=== PATIENT | male | born 1940 | race Caucasian/White ===

== ENCOUNTER → 2017-10-25 | Day surgery (SDC) | payer MEDICARE, BC ==
[~2017-10-25] MED LIST: Lactated Ringers 1,000 ML IV SCH; Propofol 200 MG/20 ML SDV IV ONE
[2017-10-25 08:41] VITALS: BP 125/65
--- NOTE | 2017-10-25 14:33 | OR ---
DATE OF OPERATION: 10/25/2017 PREOPERATIVE DIAGNOSIS: DYSPHAGIA. POSTOPERATIVE DIAGNOSIS: DYSPHAGIA. SURGEON: Michele Camp MD PROCEDURE: FULL-LENGTH EGD WITH SNARE POLYPECTOMY X1. ANESTHESIA: LEARNING DISABLED TEACHER. COMPLICATIONS: None. SPECIMEN: Fundal polyp. FINDINGS: 1. Full-length EGD. 2. 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 3. Fundal polyps x3. 4. No sign of peptic ulcer disease, distal esophagitis, stricturing, ulceration, or Eduardo's. RECOMMENDATIONS: Medical followup pending path reports. INDICATIONS: Mr. 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 The patient elected to proceed with EGD. DESCRIPTION OF PROCEDURE: The patient was prepped and draped, placed in a left lateral decubitus position. A lubricated Olympus gastroscope was inserted over a bit, advanced to the cricopharyngeus area and intubated in the esophagus. The esophageal lining appeared benign in its entire course. The Z-line was crisp and sharp around 40 cm. No hernia present. No distal esophagitis, stricturing, ulceration, or Eduardo's changes. The scope was advanced into the stomach through the pylorus and into the second portion of the duodenum. This and the duodenal bulb were completely benign. The scope was brought back in the stomach and retroflexed. The upper fundus and cardia showed no gross abnormalities. The patient had 3 reasonably small adenomatous polyps in the fundus, the larger of the 3 was removed with a snare and suctioned into polyp trap #1. The rest of the fundus and antrum showed no other gross signs of any peptic ulcer disease, other lesions, etc. Air was then suctioned from the stomach and scope removed without complication. CHARBEL/RODRIGO /[id number]
== END ==
LOC: CC.SDS 06:23
PROVIDERS: ATTEND Family Medicine
DX: K31.7 Polyp of stomach and duodenum (principal); I25.10 Atherosclerotic heart disease of native coronary artery without angina pectoris; F32.9 Major depressive disorder, single episode, unspecified; E53.8 Deficiency of other specified B group vitamins; E78.5 Hyperlipidemia, unspecified; I10 Essential (primary) hypertension; E11.9 Type 2 diabetes mellitus without complications; Z95.1 Presence of aortocoronary bypass graft; Z79.82 Long term (current) use of aspirin; Z88.8 Allergy status to other drugs, medicaments and biological substances; Z79.899 Other long term (current) drug therapy; Z79.84 Long term (current) use of oral hypoglycemic drugs; Z72.0 Tobacco use
CPT/HCPCS: 00731; 43251; 82962; 88305; 88342; J2704; J7120

== ENCOUNTER 2019-12-26 03:19 | Emergency (ER) | payer MEDICARE, BC ==
[2019-12-26 03:23] VITALS: BP 137/71; PULSE 94
--- NOTE | 2019-12-26 03:59 | EDM.PDOC ---
ED HPI GENERAL MEDICAL PROBLEM - General Chief Complaint: General Stated Complaint: groin pain Time Seen by Provider: 12/26/19 03:42 Source of Information: Reports: Patient History Limitations: Reports: No Limitations - History of Present Illness INITIAL COMMENTS - FREE TEXT/NARRATIVE: This patient is a 79 year old male that presents to the ER. Patient reports for weeks having issues with urinary frequency, but not emptying bladder completely with urge. Patient reports it was worse this morning. Onset: Today Duration: Hour(s): (3) Severity: Mild Improves with: Reports: None Worsens with: Reports: None Associated Symptoms: Reports: No Other Symptoms. Denies: Nausea/Vomiting Groin Pain Score (Numeric/FACES): 8 - Related Data Allergies Allergy/AdvReac Type Severity Reaction Status Date / Time diltiazem HCl Allergy Rash Verified 12/26/19 03:23 [From Dilacor XR] Home Meds: Home Meds Gabapentin 300 mg PO DAILY 11/22/13 [History] amLODIPine Besylate [Amlodipine Besylate] 10 mg PO DAILY 11/22/13 [History] Losartan Potassium [Cozaar] 100 mg PO DAILY 11/24/15 [History] Aspirin 325 mg PO DAILY 01/24/16 [History] Docusate Sodium 250 mg PO DAILY 01/24/16 [History] Folic Acid 1 mg PO DAILY 01/24/16 [History] Gabapentin [Neurontin] 600 mg PO BEDTIME 01/24/16 [History] Metoprolol Tartrate [Lopressor] 50 mg PO BID 01/24/16 [History] Mirtazapine 15 mg PO BEDTIME 01/24/16 [History] Multivitamin [Daily Multiple Vitamin] 1 tab PO DAILY 01/24/16 [History] Omeprazole 20 mg PO DAILY 01/24/16 [History] Thiamine [Vitamin B-1] 100 mg PO DAILY 01/24/16 [History] atorvaSTATin [Lipitor] 40 mg PO BEDTIME 01/24/16 [History] Acetaminophen/HYDROcodone [[place]ma 325-5 MG] 1 tab PO Q4H PRN #60 tablet 01/27/16 [Rx] Amiodarone [Cordarone] 200 mg PO DAILY #30 tablet 01/27/16 [Rx] metFORMIN HCl [Metformin HCl] 1,000 mg PO DAILY #30 01/27/16 [Rx] Clotrimazole/Betamethasone Dip [Lotrisone Cream] 1 applic TOP ASDIRECTED [History] hydroCHLOROthiazide [Hydrochlorothiazide] 12.5 mg PO DAILY 10/24/17 [History] Past Medical History Cardiovascular History: Reports: Bypass, CAD, High Cholesterol, Hypertension Musculoskeletal History: Reports: Arthritis Psychiatric History: Reports: Depression Endocrine/Metabolic History: Reports: Diabetes, Type II Hematologic History: Reports: B12 Deficiency - Infectious Disease History Infectious Disease History: Reports: None - Past Surgical History Cardiovascular Surgical History: Reports: Coronary Artery Bypass GI Surgical History: Reports: Appendectomy, Colonoscopy Musculoskeletal Surgical History: Reports: Hip Replacement, Other (See Below) Social & Family History - Tobacco Use Smoking Status *Q: Never Smoker - Caffeine Use Caffeine Use: Reports: Coffee - Recreational Drug Use Recreational Drug Use: No ED ROS GENERAL - Review of Systems Review Of Systems: See Below Constitutional: Reports: No Symptoms HEENT: Reports: No Symptoms Respiratory: Reports: No Symptoms Cardiovascular: Reports: No Symptoms Endocrine: Reports: No Symptoms GI/Abdominal: Reports: No Symptoms : Reports: Frequency, Pain, Urgency, Urinary Retention Musculoskeletal: Reports: No Symptoms Skin: Reports: No Symptoms Neurological: Reports: No Symptoms Psychiatric: Reports: No Symptoms Hematologic/Lymphatic: Reports: No Symptoms Immunologic: Reports: No Symptoms ED EXAM, GENERAL - Physical Exam Exam: See Below Exam Limited By: No Limitations General Appearance: Alert, WD/WN, No Apparent Distress Respiratory/Chest: No Respiratory Distress, Lungs Clear, Normal Breath Sounds, No Accessory Muscle Use Cardiovascular: Normal Peripheral Pulses, Regular Rate, Rhythm, No Edema, No Gallop, No JVD, No Murmur, No Rub Peripheral Pulses: 2+: Posterior Tibial (L), Posterior Tibial (R) GI/Abdominal: Normal Bowel Sounds, Soft, Non-Tender, No Organomegaly (Male) Exam: Normal Inspection Back Exam: Normal Inspection, Full Range of Motion. No: CVA Tenderness (L), CVA Tenderness (R) Extremities: Normal Inspection, Pedal Edema Neurological: Alert, Oriented Psychiatric: Normal Affect, Normal Mood Skin Exam: Warm, Dry, Intact, Normal Color, No Rash Course - Vital Signs Last Recorded V/S: Last Vital Signs Temp 97.9 F 12/26/19 03:20 Pulse 94 12/26/19 03:20 Resp 18 12/26/19 03:20 BP 137/71 12/26/19 03:20 Pulse Ox 98 12/26/19 03:20 - Orders/Labs/Meds Orders: Active Orders 24 hr Category Date Time Status Insert Meek Catheter [Insert Urinary Catheter] [OM.PC] Care 12/26/19 03:29 Ordered Q24H Urinary Catheter Assessment [RC] ASDIRECTED Care 12/26/19 03:29 Active Labs: Laboratory Tests 12/26/19 Range/Units 03:48 Urine Color Yellow (YELLOW) Urine Appearance Clear (CLEAR) Urine pH 5.5 (4.5-8.0) Ur Specific [place] 1.025 H (1.003-1.020) Urine Protein Negative (NEGATIVE) mg/dL Urine Glucose (UA) Negative (NEGATIVE) mg/dL Urine Ketones Negative (NEGATIVE) mg/dL Urine Occult Blood Negative (NEGATIVE) Urine Nitrite Negative (NEGATIVE) Urine Bilirubin Negative (NEGATIVE) Urine Urobilinogen 0.2 (0.2-1.0) EU/dL Ur Leukocyte Esterase Negative (NEGATIVE) - Re-Assessments/Exams Free Text/Narrative Re-Assessment/Exam: 12/26/19 03:57 Apprx 700 urine out after meek placement. Will leave meek indwelling in place. Patient reports he feels completely better after meek. Departure - Departure Time of Disposition: 03:57 Disposition: Home, Self-Care 01 Condition: Good Clinical Impression: Urinary retention - Discharge Information *PRESCRIPTION DRUG MONITORING PROGRAM REVIEWED*: Not Applicable *COPY OF PRESCRIPTION DRUG MONITORING REPORT IN PATIENT MARY: Not Applicable Instructions: Acute Urinary Retention, Male, [id number] Forms: ED Department Discharge Additional Instructions: Followup with Dr. Rodriguez Call Dr Camp office, inform them you now have a meek catheter and you need to be seen by Dr. Rodriguez Drain the bag regularly as shown in the ER Keep catheter clean Return to the ER for fever, vomiting, pain, or other complaints Sepsis Event Note - Evaluation Sepsis Screening Result: No Definite Risk - Focused Exam Vital Signs: Vital Signs Temp Pulse Resp BP Pulse Ox 12/26/19 03:20 97.9 F 94 18 137/71 98 Date Exam was Performed: 12/26/19 Time Exam was Performed: 04:17 - My Orders Last 24 Hours: My Active Orders 12/26/19 03:29 Insert Meek Catheter [Insert Urinary Catheter] [OM.PC] Q24H Urinary Catheter Assessment [RC] ASDIRECTED - Assessment/Plan Last 24 Hours: My Active Orders 12/26/19 03:29 Insert Meek Catheter [Insert Urinary Catheter] [OM.PC] Q24H Urinary Catheter Assessment [RC] ASDIRECTED Plan: PLEASE SEE RN NOTE FOR PFSH
== END 2019-12-26 04:19 | disposition home or self-care (01) ==
LOC: CC.ED 03:19
DX: R33.9 Retention of urine, unspecified (principal); E11.9 Type 2 diabetes mellitus without complications; F32.9 Major depressive disorder, single episode, unspecified; I10 Essential (primary) hypertension; E78.00 Pure hypercholesterolemia, unspecified; I25.10 Atherosclerotic heart disease of native coronary artery without angina pectoris; Z95.1 Presence of aortocoronary bypass graft; Z79.82 Long term (current) use of aspirin; Z88.8 Allergy status to other drugs, medicaments and biological substances; Z79.899 Other long term (current) drug therapy; Z79.84 Long term (current) use of oral hypoglycemic drugs
CPT/HCPCS: 51702; 81003; 99283-25; 99284

== ENCOUNTER 2020-06-30 14:25 | Inpatient (IN) | payer MEDICARE, BC ==
[2020-06-30 15:35] LABS: CHLORIDE,CL 102 mEq/L (98-106); SODIUM,NA 142 mEq/L (136-145)
[2020-06-30] MEDS ORDERED: Clopidogrel 75 MG Tab PO ONE (16:55)
[2020-06-30] MEDS ORDERED: Furosemide 40 MG/4 ML VIAL IVPUSH ONE (16:55)
[2020-06-30] MEDS ORDERED: Aspirin 325 MG Tab PO ONE (16:55)
[2020-06-30] MEDS ORDERED: Nitroglycerin 2% Oint 1 GM UD Packet TOP ONE (16:59)
[2020-06-30] MEDS ORDERED: Sodium Chloride 0.9% 10 ML Syringe FLUSH PRN (17:04)
[2020-06-30] MEDS ORDERED: Heparin Sodium 5,000 Units/ML Vial IVPUSH ONE (17:20)
[2020-06-30] MEDS ORDERED: Heparin Sodium/D5W 25,000 UNITS/500 ML BAG IV STA (17:20)
[2020-06-30 17:46] LABS: PTT,PARTIAL THROMBOPLSTIN TIME 23.2 SEC (23.2-32.3)
[2020-06-30 18:56] VITALS: BP 159/81; PULSE 91
--- NOTE | 2020-06-30 20:41 | DISCH ---
ADMISSION DIAGNOSIS: Acute congestive heart failure. DISCHARGE DIAGNOSIS: 1. ACUTE CORONARY SYNDROME. 2. CONGESTIVE HEART FAILURE. 3. TYPE 2 DIABETES. 4. HISTORY OF CORONARY ARTERY DISEASE, STATUS POST CORONARY ARTERY BYPASS GRAFT. HISTORY: Fortino presented to my office with exertional dyspnea, shortness of breath, and increasing peripheral edema. He had an elevated BNP and showed signs of heart failure on his chest x-ray. Troponin came back elevated at 1.5. On further discussion, the patient admits to having about a 7- to 10-day history of some anterior chest pressure at times, especially in the morning. HOSPITAL COURSE: The patient was initially admitted to the hospital for appropriate cares, including anticoagulation, IV Lasix, topical nitroglycerin, aspirin and Plavix. I was able to get a hold of Dr. Nj at [facility] on-call Cardiology, who desires transfer more urgently. The previous plan had been to transfer him by the morning, but he would like him down there tonight. He asked for a heparin drip instead of Lovenox, which we did. The patient was given 40 of Lasix IV for his CHF. We started him on topical nitroglycerin as his pressures were high, put him on oxygen, and gave him 600 of Plavix and a full aspirin. He will go ALS ground transfer, care of Dr. Nj, accepting physician at [facility]. COMPLICATIONS: None. CONSULTATIONS: Cardiology. DISPOSITION: ALS ground transfer, [facility]. CHARBEL/RODRIGO /[id number]
== END 2020-06-30 18:45 | DRG 281 ==
LOC: CC.FCMC 14:25 → CC.MS 15:48 → UNDOADMIN 15:48 → CC.MS 17:02 → UNDODISIN 18:45
PROVIDERS: ADMIT Family Medicine; ATTEND Family Medicine
DX: I11.0 Hypertensive heart disease with heart failure (principal); I21.4 Non-ST elevation (NSTEMI) myocardial infarction; I24.9 Acute ischemic heart disease, unspecified; I50.9 Heart failure, unspecified; C61 Malignant neoplasm of prostate; N40.0 Benign prostatic hyperplasia without lower urinary tract symptoms; Z20.828 Contact with and (suspected) exposure to other viral communicable diseases; F32.9 Major depressive disorder, single episode, unspecified; E78.5 Hyperlipidemia, unspecified; E53.8 Deficiency of other specified B group vitamins; I25.10 Atherosclerotic heart disease of native coronary artery without angina pectoris; E83.119 Hemochromatosis, unspecified; N32.81 Overactive bladder; Z88.8 Allergy status to other drugs, medicaments and biological substances; Z79.82 Long term (current) use of aspirin; Z95.1 Presence of aortocoronary bypass graft; Z79.899 Other long term (current) drug therapy; Z79.84 Long term (current) use of oral hypoglycemic drugs
CPT/HCPCS: 36415; 71046; 80053; 81001; 83880; 84484; 85025; 85379; 85610; 85730; 86140; 93005; 93010; A9270-GY; J1644; J1940; U0002

== ENCOUNTER 2020-08-07 17:05 | Inpatient (IN) | payer MEDICARE, BC ==
--- NOTE | 2020-08-07 17:53 | EDM.PDOC ---
ED HPI GENERAL MEDICAL PROBLEM - General Chief Complaint: General Stated Complaint: agitation, confusion Time Seen by Provider: 08/07/20 17:10 Source of Information: Reports: Patient, Family, RN History Limitations: Reports: Altered Mental Status - History of Present Illness INITIAL COMMENTS - FREE TEXT/NARRATIVE: This patient is a 80 year old male that presented to the ER via private vehicle. 911 was called by family, EMS responded, but patient was already in the private vehicle driving in route to the hospital. When patient arrived in the ambulance bay, he refused to get out of the daughter van. He became combative with the daughter. After spending about 25 minutes with patient trying to talk him out of the van, he refused. He made a fist at staff. Patient is alert, but he is not oriented. He does not know the year or location. Patient then as lifted about of the van with a gait belt and multiple person assist onto an ER stretcher. Once on the stretcher and in the ER, patient became more cooperative. The daughter reports that the patient was in [place] staying with her, then on July 14 diagnosed with COVID and admitted to the hospital and discharged the 21 of July. Daughter reports while the patient was admitted in the hospital he became confused and "dementia". She reports the hospital told her it was dementia. The daughter reports her father was staying with her in [place]. She reports the past couple of days the patient has become more forgetful, agitated, and has been swinging at her to punch her. She reports that she was able to get an office visit with Dr. Camp here tomorrow in [place]. She reports her father is from here in [place]. She reports the visit was to see Dr Camp and be admitted on Saturday to [facility]. Daughter reports that she managed to get her father in the van in [place], drive here to [place] then when she tried to get the patient out of the van he started swinging at her with a fist to hit her. The patient in the exam room reports that he is very mad at his daughter because she is taking his house away from him. Once daughter is not in the exam room, the patient remains calm and cooperative. He is alert to self and location in exam room. The patient denies any complaints. The daughter denies patient having vomiting, diarrhea, fever, cough, unilateral weaknesses. Onset Date: 08/05/20 Duration: Day(s): (2) Improves with: Reports: None Worsens with: Reports: None Associated Symptoms: Reports: Confusion. Denies: Chest Pain, Cough, cough w sputum, Diaphoresis, Fever/Chills, Headaches, Loss of Appetite, Malaise, Nausea/Vomiting, Rash, Seizure, Shortness of Breath, Syncope, Weakness - Related Data Allergies Allergy/AdvReac Type Severity Reaction Status Date / Time diltiazem HCl Allergy Rash Verified 08/07/20 17:39 [From Dilacor XR] Home Meds: Home Meds Gabapentin 300 mg PO ASDIRECTED 11/22/13 [History] amLODIPine Besylate [Amlodipine Besylate] 10 mg PO DAILY 11/22/13 [History] Losartan Potassium [Cozaar] 100 mg PO DAILY 11/24/15 [History] Aspirin 325 mg PO DAILY 01/24/16 [History] Folic Acid 1 mg PO DAILY 01/24/16 [History] Metoprolol Tartrate [Lopressor] 50 mg PO BID 01/24/16 [History] Mirtazapine 1.5 tab PO BEDTIME 01/24/16 [History] Multivitamin [Daily Multiple Vitamin] 1 tab PO DAILY 01/24/16 [History] Omeprazole 20 mg PO DAILY 01/24/16 [History] atorvaSTATin [Lipitor] 40 mg PO BEDTIME 01/24/16 [History] Amiodarone [Cordarone] 200 mg PO DAILY #30 tablet 01/27/16 [Rx] metFORMIN HCl [Metformin HCl] 1,000 mg PO BID 12/26/19 [History] Past Medical History Cardiovascular History: Reports: Bypass, CAD, High Cholesterol, Hypertension Musculoskeletal History: Reports: Arthritis Psychiatric History: Reports: Depression Endocrine/Metabolic History: Reports: Diabetes, Type II Hematologic History: Reports: B12 Deficiency Oncologic (Cancer) History: Reports: Prostate - Infectious Disease History Infectious Disease History: Reports: Novel Coronavirus, Shingles - Past Surgical History Cardiovascular Surgical History: Reports: Coronary Artery Bypass GI Surgical History: Reports: Appendectomy, Colonoscopy Musculoskeletal Surgical History: Reports: Hip Replacement, Other (See Below) Other Musculoskeletal Surgeries/Procedures:: left ankle surgery. Social & Family History - Caffeine Use Caffeine Use: Reports: Coffee ED ROS GENERAL - Review of Systems Review Of Systems: See Below Constitutional: Reports: No Symptoms HEENT: Reports: No Symptoms Respiratory: Reports: No Symptoms Cardiovascular: Reports: No Symptoms Endocrine: Reports: No Symptoms GI/Abdominal: Reports: No Symptoms : Reports: No Symptoms, Other (cath leg bag) Musculoskeletal: Reports: No Symptoms Skin: Reports: No Symptoms Neurological: Reports: Confusion. Denies: Dizziness, Headache, Numbness, Syncope, Tingling, Weakness, Change in Speech Psychiatric: Reports: Agitation, Anxiety, Confusion Hematologic/Lymphatic: Reports: No Symptoms Immunologic: Reports: No Symptoms ED EXAM, GENERAL - Physical Exam Exam: See Below Exam Limited By: Altered Mental Status General Appearance: Alert, WD/WN, No Apparent Distress, Anxious, Obese Eye Exam: Bilateral Eye: Normal Inspection, PERRL Ears: Normal External Exam, Normal Canal, Hearing Grossly Normal, Normal TMs Ear Exam: Bilateral Ear: Auricle Normal, Canal Normal, TM normal Nose: Normal Inspection, Normal Mucosa, No Blood Throat/Mouth: Normal Inspection, Normal Lips, Normal Teeth, Normal Gums, Normal Oropharynx, Normal Voice, No Airway Compromise Head: Atraumatic, Normocephalic Neck: Normal Inspection, Supple, Non-Tender, Full Range of Motion Respiratory/Chest: No Respiratory Distress, Lungs Clear, Normal Breath Sounds, No Accessory Muscle Use, Chest Non-Tender Cardiovascular: Normal Peripheral Pulses, Regular Rate, Rhythm, No Rub Peripheral Pulses: 2+: Radial (L), Radial (R), Posterior Tibial (L), Posterior Tibial (R), Dorsalis Pedis (L), Dorsalis Pedis (R) GI/Abdominal: Soft, Tender (mild diffuse) Back Exam: Normal Inspection, Full Range of Motion, Paraspinal Tenderness (mild throughout). No: CVA Tenderness (L), CVA Tenderness (R), Decreased Range of Motion, Muscle Spasm, Vertebral Tenderness Extremities: Normal Inspection, Normal Range of Motion, Non-Tender, No Pedal Edema, Normal Capillary Refill Neurological: Alert, CN II-XII Intact (No unilateral weaknesses), Normal Cognition, No Motor/Sensory Deficits, Other (Oriented to self and place. Not time. ) Psychiatric: Normal Affect, Normal Mood Skin Exam: Warm, Dry, Intact, Normal Color, No Rash, Ecchymosis (diffuse abdomen consistent with Lovenox injections from recent admission. Left hip, BUE foreamrs and upper arms.) Lymphatic: No Adenopathy Course - Vital Signs Last Recorded V/S: Last Vital Signs Temp 98 F 08/07/20 17:32 Pulse 84 08/07/20 17:32 Resp 20 08/07/20 17:32 BP 118/58 L 08/07/20 17:32 Pulse Ox 93 L 08/07/20 17:32 - Orders/Labs/Meds Orders: Active Orders 24 hr Category Date Time Status Chest 1V Frontal [CR] Stat Exams 08/07/20 17:41 Taken Head wo Cont [CT] Stat Exams 08/07/20 17:42 Taken CULTURE BLOOD [BC] Stat Lab 08/07/20 18:00 Received CULTURE BLOOD [BC] Stat Lab 08/07/20 18:00 Received CULTURE URINE [RM] Stat Lab 08/07/20 19:15 Received Blood Culture x2 Reflex Set [OM.PC] Stat Oth 08/07/20 17:40 Ordered Labs: Laboratory Tests 08/07/20 08/07/20 08/07/20 Range/Units 17:40 18:00 18:00 WBC 8.5 (5.0-10.0) 10^3/uL RBC 4.40 L (4.50-6.00) 10^6/uL Hgb 12.5 L (14.0-18.0) g/dL Hct 38.8 L (40.0-54.0) % MCV 88.2 (82.0-94.0) fL MCH 28.4 (27.0-32.0) pg MCHC 32.2 L (33.0-38.0) g/dL RDW Coeff of Lars 13.5 (11.0-15.0) % Plt Count 170 (150-400) 10^3/uL Neut % (Auto) 62.8 (35-85) % Lymph % (Auto) 22.3 (10-55) % [place] % (Auto) 9.5 (0-16) % Eos % (Auto) 4.9 (0-5) % Baso % (Auto) 0.5 (0-3) % Neut # (Auto) 5.33 (1.80-7.00) 10^3/uL Lymph # (Auto) 1.89 (1.00-4.80) 10^3/uL [place] # (Auto) 0.81 H (0.00-0.80) 10^3/uL Eos # (Auto) 0.42 (0.00-0.45) 10^3/uL Baso # (Auto) 0.04 10^3/uL Sodium 142 (136-145) mEq/L Potassium 4.7 (3.5-5.0) mEq/L Chloride 101 (98-106) mEq/L Carbon Dioxide 31 (21-32) mmol/L BUN 27 H (7-18) mg/dL Creatinine 2.5 H D (0.7-1.3) mg/dL Est Cr Clr Drug Dosing 21.18 mL/min Estimated GFR (MDRD) 25 L (>=60) mL/min Glucose 150 H (75-99) mg/dL Lactic Acid (0.4-2.0) mmol/L Calcium 8.6 (8.4-10.1) mg/dL Total Bilirubin 0.5 (0.0-1.0) mg/dL AST 37 (15-37) U/L ALT 24 (12-78) U/L Alkaline Phosphatase 135 H (46-116) U/L Creatine Kinase 1054 H (35-232) U/L Total Protein 7.2 (6.4-8.2) g/dL Albumin 3.0 L (3.4-5.0) g/dL Urine Color Red (YELLOW) Urine Appearance Cloudy (CLEAR) Urine pH 5.0 (4.5-8.0) Ur Specific [place] >= 1.030 H (1.003-1.020) Urine Protein >=300 H (NEGATIVE) mg/dL Urine Glucose (UA) Negative (NEGATIVE) mg/dL Urine Ketones 15 H (NEGATIVE) mg/dL Urine Occult Blood Large H (NEGATIVE) Urine Nitrite Positive H (NEGATIVE) Urine Bilirubin Negative (NEGATIVE) Urine Urobilinogen 1.0 (0.2-1.0) EU/dL Ur Leukocyte Esterase Large H (NEGATIVE) Urine RBC Packed H (0-5) /HPF Urine WBC 75-100 H (0-5) /HPF Urine Bacteria Many H (NOT SEEN) /HPF Urinalysis Comment 08/07/20 Range/Units 18:00 WBC (5.0-10.0) 10^3/uL RBC (4.50-6.00) 10^6/uL Hgb (14.0-18.0) g/dL Hct (40.0-54.0) % MCV (82.0-94.0) fL MCH (27.0-32.0) pg MCHC (33.0-38.0) g/dL RDW Coeff of Lars (11.0-15.0) % Plt Count (150-400) 10^3/uL Neut % (Auto) (35-85) % Lymph % (Auto) (10-55) % [place] % (Auto) (0-16) % Eos % (Auto) (0-5) % Baso % (Auto) (0-3) % Neut # (Auto) (1.80-7.00) 10^3/uL Lymph # (Auto) (1.00-4.80) 10^3/uL [place] # (Auto) (0.00-0.80) 10^3/uL Eos # (Auto) (0.00-0.45) 10^3/uL Baso # (Auto) 10^3/uL Sodium (136-145) mEq/L Potassium (3.5-5.0) mEq/L Chloride (98-106) mEq/L Carbon Dioxide (21-32) mmol/L BUN (7-18) mg/dL Creatinine (0.7-1.3) mg/dL Est Cr Clr Drug Dosing mL/min Estimated GFR (MDRD) (>=60) mL/min Glucose (75-99) mg/dL Lactic Acid 3.5 H (0.4-2.0) mmol/L Calcium (8.4-10.1) mg/dL Total Bilirubin (0.0-1.0) mg/dL AST (15-37) U/L ALT (12-78) U/L Alkaline Phosphatase (46-116) U/L Creatine Kinase (35-232) U/L Total Protein (6.4-8.2) g/dL Albumin (3.4-5.0) g/dL Urine Color (YELLOW) Urine Appearance (CLEAR) Urine pH (4.5-8.0) Ur Specific [place] (1.003-1.020) Urine Protein (NEGATIVE) mg/dL Urine Glucose (UA) (NEGATIVE) mg/dL Urine Ketones (NEGATIVE) mg/dL Urine Occult Blood (NEGATIVE) Urine Nitrite (NEGATIVE) Urine Bilirubin (NEGATIVE) Urine Urobilinogen (0.2-1.0) EU/dL Ur Leukocyte Esterase (NEGATIVE) Urine RBC (0-5) /HPF Urine WBC (0-5) /HPF Urine Bacteria (NOT SEEN) /HPF Urinalysis Comment - Radiology Interpretation Free Text/Narrative:: CXR: no acute findings Head CT: age indeterminant small left basal ganglia lacunar infarcts. No priors for comparison. Small chronic appearingare of encephalomalacia involving the right cerebellar hemisphere. Mild to moderate age related cerebral parenchymal volume loss and findings most consistent with chronic small vessel ischemic change. Cerumen impaction involving the bilateral external auditory canals. CT Results Date: 08/07/20 CT Results Time: : - Re-Assessments/Exams Free Text/Narrative Re-Assessment/Exam: 08/07/20 19:11 Patient is being cooperative. He is sitting up in bed in room 112, eating dinner. He now is alert and oriented x3. He knows his name, location, and year. Departure - Departure Time of Disposition: 19:20 Disposition: Admitted As Inpatient 68 Condition: Fair Clinical Impression: Renal insufficiency, Agitation, UTI, Urinary tract infectious disease Altered mental status Qualifiers: Altered mental status type: delirium Qualified Code(s): R41.0 - Disorientation, unspecified - Discharge Information *PRESCRIPTION DRUG MONITORING PROGRAM REVIEWED*: Not Applicable *COPY OF PRESCRIPTION DRUG MONITORING REPORT IN PATIENT MARY: Not Applicable Sepsis Event Note (ED) - Evaluation Sepsis Screening Result: No Definite Risk - Focused Exam Vital Signs: Vital Signs Temp Pulse Resp BP Pulse Ox 08/07/20 17:32 98 F 84 20 118/58 L 93 L - My Orders Last 24 Hours: My Active Orders 08/07/20 17:40 Blood Culture x2 Reflex Set [OM.PC] Stat 08/07/20 17:41 Chest 1V Frontal [CR] Stat 08/07/20 17:42 Head wo Cont [CT] Stat 08/07/20 18:00 CULTURE BLOOD [BC] Stat CULTURE BLOOD [BC] Stat 08/07/20 19:15 CULTURE URINE [RM] Stat - Assessment/Plan Last 24 Hours: My Active Orders 08/07/20 17:40 Blood Culture x2 Reflex Set [OM.PC] Stat 08/07/20 17:41 Chest 1V Frontal [CR] Stat 01/17/21 17:42 Head wo Cont [CT] Stat 08/07/20 18:00 CULTURE BLOOD [BC] Stat CULTURE BLOOD [BC] Stat 08/07/20 19:15 CULTURE URINE [RM] Stat Plan: PLEASE SEE RN NOTE FOR PFSH PLEASE USE ER H&P ADMIT H&P
[2020-08-07] MEDS ORDERED: Acetaminophen 325 MG Tab PO PRN (19:29)
[2020-08-07] MEDS ORDERED: Morphine 2 MG/ML SYRINGE IVPUSH PRN (19:29)
[2020-08-07] MEDS ORDERED: Acetaminophen/HYDROcodone 325-5 MG Tab PO PRN (19:29)
[2020-08-07] MEDS ORDERED: Temazepam 15 MG Cap PO PRN (19:29)
[2020-08-07] MEDS ORDERED: Ondansetron 4 MG/2 ML SDV IV PRN (19:29)
[2020-08-07] MEDS ORDERED: Enoxaparin 30 MG/0.3 ML Syringe SUBCUT SCH (19:30)
[2020-08-07] MEDS ORDERED: cefTRIAXone 1 GM Vial IVPUSH SCH (19:30)
[2020-08-07] MEDS ORDERED: Sodium Chloride 0.9% 1,000 ML IV SCH (19:30)
[2020-08-07] MEDS: cefTRIAXone 1 GM Vial IVPUSH SCH (20:33)
[2020-08-07] MEDS: metFORMIN 500 MG Tab PO SCH (20:34)
[2020-08-07] MEDS: Gabapentin 300 MG Cap PO SCH (20:35)
[2020-08-07] MEDS: Mirtazapine 15 MG Tab PO SCH (20:36)
[2020-08-07] MEDS: Metoprolol Tartrate 50 MG Tab PO SCH (20:37)
[2020-08-07] MEDS: atorvaSTATin 20 MG Tab PO SCH (20:40)
[2020-08-07] MEDS: Enoxaparin 30 MG/0.3 ML Syringe SUBCUT SCH (20:40)
[2020-08-08] MEDS: Pantoprazole 40 MG Tab.CR PO SCH (06:38)
[2020-08-08] MEDS: Metoprolol Tartrate 50 MG Tab PO SCH ×2 (07:38→23:04)
[2020-08-08] MEDS: Aspirin 325 MG Tab PO SCH (07:38)
[2020-08-08] MEDS: Folic Acid 1 MG Tab PO SCH (07:39)
[2020-08-08] MEDS: Multivitamin Tab PO SCH (07:39)
[2020-08-08] MEDS: Losartan 100 MG Tab PO SCH (07:39)
[2020-08-08] MEDS: Gabapentin 300 MG Cap PO SCH ×3 (07:39→19:53)
[2020-08-08] MEDS: Amiodarone 200 MG Tab PO SCH (07:39)
[2020-08-08] MEDS: amLODIPine 10 MG Tab PO SCH (07:40)
[2020-08-08] MEDS: metFORMIN 500 MG Tab PO SCH ×2 (07:40→23:04)
[2020-08-08] MEDS ORDERED: LORazepam 2 MG/ML Syringe IVPUSH PRN (09:58)
[2020-08-08] MEDS: QUEtiapine 25 MG Tab PO SCH ×2 (10:17→19:54)
[2020-08-08] MEDS: Fluconazole 100 MG Tab PO SCH (10:17)
[2020-08-08] MEDS ORDERED: Flumazenil 0.1 MG/ML 5 ML MDV IVPUSH ONE (16:40)
[2020-08-08] MEDS: Enoxaparin 30 MG/0.3 ML Syringe SUBCUT SCH (19:32)
[2020-08-08] MEDS: cefTRIAXone 1 GM Vial IVPUSH SCH (19:33)
[2020-08-08] MEDS: Mirtazapine 15 MG Tab PO SCH (19:53)
[2020-08-08] MEDS: atorvaSTATin 20 MG Tab PO SCH (19:53)
--- NOTE | 2020-08-08 23:24 | PCM.PN ---
- General Info Date of Service: 08/08/20 Admission Dx/Problem (Free Text): Agitation Subjective Update: ADMIT: Fortino is a 80 year old male that presented to the ER via private vehicle by his daughter. Daughter admits he became combative today and upon arrival initially refused getting out of [place]. It was noted patient to have altered mental status. Initially patient was alert on arrival but not orientated as he didn't know the year or where he was. The daughter had reported the patient was in [place] staying with her prior to coming back to [place] today. Daughter had appointment with Dr. Camp initially today for [facility]. Fortino ended up getting COVID on Ayana robbin and was admitted to the hospital and discharged the 21 of July. Daughter had stated while the patient was admitted in the hospital he became confused and came down with dementia which the hospital had told her. The past couple of days the Fortino has become more forgetful, agitated, and has been swinging at her to punch her. Per ER provider he had admitted after his daughter left the room that he was very mad at her because she is taking his house away from him. He became more alert and orientated to place at that time. 08/08/2020 Fortino is very agitated this morning and not willing to cooperate with nursing staff or myself. Words are garbled at times and very difficult to understand. Patient will not take any medications. Says he is going home. - Review of Systems General: Reports: Other (ROS unable to obtain as patient is not cooperative with altered mental status. ) Psychiatric: Reports: Agitation - Patient Data Vitals - Most Recent: Last Vital Signs Temp 98.8 F 08/08/20 19:29 Pulse 82 08/08/20 19:29 Resp 21 H 08/08/20 19:29 BP 115/45 L 08/08/20 19:29 Pulse Ox 93 L 08/08/20 19:29 Weight - Most Recent: 216 lb 6.4 oz I&O - Last 24 Hours: Intake & Output 08/08/20 08/08/20 08/09/20 14:59 22:59 06:59 Intake Total 50 Output Total 300 Balance -250 Lab Results Last 24 Hours: Laboratory Results - last 24 hr 08/07/20 08/08/20 08/08/20 Range/Units 20:45 07:06 07:06 WBC 6.7 (5.0-10.0) 10^3/uL RBC 3.96 L (4.50-6.00) 10^6/uL Hgb 11.2 L (14.0-18.0) g/dL Hct 35.4 L (40.0-54.0) % MCV 89.4 (82.0-94.0) fL MCH 28.3 (27.0-32.0) pg MCHC 31.6 L (33.0-38.0) g/dL RDW Coeff of Lars 13.5 (11.0-15.0) % Plt Count 153 (150-400) 10^3/uL Neut % (Auto) 50.4 (35-85) % Lymph % (Auto) 31.4 (10-55) % [place] % (Auto) 10.6 (0-16) % Eos % (Auto) 7.0 H (0-5) % Baso % (Auto) 0.6 (0-3) % Neut # (Auto) 3.39 (1.80-7.00) 10^3/uL Lymph # (Auto) 2.11 (1.00-4.80) 10^3/uL [place] # (Auto) 0.71 (0.00-0.80) 10^3/uL Eos # (Auto) 0.47 H (0.00-0.45) 10^3/uL Baso # (Auto) 0.04 10^3/uL Sodium 142 (136-145) mEq/L Potassium 4.5 (3.5-5.0) mEq/L Chloride 105 (98-106) mEq/L Carbon Dioxide 31 (21-32) mmol/L BUN 26 H (7-18) mg/dL Creatinine 2.0 H (0.7-1.3) mg/dL Est Cr Clr Drug Dosing 26.48 mL/min Estimated GFR (MDRD) 32 L (>=60) mL/min Glucose 136 H (75-99) mg/dL POC Glucose 210 H (75-105) mg/dl Calcium 8.2 L (8.4-10.1) mg/dL 08/08/20 Range/Units 19:26 WBC (5.0-10.0) 10^3/uL RBC (4.50-6.00) 10^6/uL Hgb (14.0-18.0) g/dL Hct (40.0-54.0) % MCV (82.0-94.0) fL MCH (27.0-32.0) pg MCHC (33.0-38.0) g/dL RDW Coeff of Lars (11.0-15.0) % Plt Count (150-400) 10^3/uL Neut % (Auto) (35-85) % Lymph % (Auto) (10-55) % [place] % (Auto) (0-16) % Eos % (Auto) (0-5) % Baso % (Auto) (0-3) % Neut # (Auto) (1.80-7.00) 10^3/uL Lymph # (Auto) (1.00-4.80) 10^3/uL [place] # (Auto) (0.00-0.80) 10^3/uL Eos # (Auto) (0.00-0.45) 10^3/uL Baso # (Auto) 10^3/uL Sodium (136-145) mEq/L Potassium (3.5-5.0) mEq/L Chloride (98-106) mEq/L Carbon Dioxide (21-32) mmol/L BUN (7-18) mg/dL Creatinine (0.7-1.3) mg/dL Est Cr Clr Drug Dosing mL/min Estimated GFR (MDRD) (>=60) mL/min Glucose (75-99) mg/dL POC Glucose 233 H (75-105) mg/dl Calcium (8.4-10.1) mg/dL Yeison Results Last 24 Hours: Microbiology 08/07/20 18:00 Aerobic Blood Culture - Preliminary Blood - Venous - Lab Draw NO GROWTH AFTER 1 DAY Anaerobic Blood Culture - Preliminary NO GROWTH AFTER 1 DAY 08/07/20 18:00 Aerobic Blood Culture - Preliminary Blood - Venous NO GROWTH AFTER 1 DAY Anaerobic Blood Culture - Preliminary NO GROWTH AFTER 1 DAY 08/07/20 19:15 Urine Culture - Preliminary Urine, Catheterized YEAST Med Orders - Current: Current Medications Acetaminophen (Tylenol) 650 mg PO Q4H PRN PRN Reason: Pain (Mild 1-3)/fever Hydrocodone Bitart/Acetaminophen ([place] 325-5 Mg) 1 tab PO Q4H PRN PRN Reason: Pain (moderate 4-6) Amiodarone HCl (Cordarone) 200 mg PO DAILY [facility] Last Admin: 08/08/20 07:39 Dose: 200 mg Documented by: Amlodipine Besylate (Norvasc) 10 mg PO DAILY [facility] Last Admin: 08/08/20 07:40 Dose: 10 mg Documented by: Aspirin (Aspirin) 325 mg PO DAILY [facility] Last Admin: 08/08/20 07:38 Dose: 325 mg Documented by: Atorvastatin Calcium (Lipitor) 40 mg PO BEDTIME [facility] Last Admin: 08/08/20 19:53 Dose: Not Given Documented by: Ceftriaxone Sodium (Rocephin) 1 gm IVPUSH Q24H [facility] Last Admin: 08/08/20 19:33 Dose: 1 gm Documented by: Enoxaparin Sodium (Lovenox) 30 mg SUBCUT Q24H [facility] Last Admin: 08/08/20 19:32 Dose: 30 mg Documented by: Fluconazole (Diflucan) 150 mg PO DAILY [facility] Last Admin: 08/08/20 10:17 Dose: 150 mg Documented by: Folic Acid (Folic Acid) 1 mg PO DAILY [facility] Last Admin: 08/08/20 07:39 Dose: 1 mg Documented by: Gabapentin (Neurontin) 300 mg PO 0800,1600 [facility] Last Admin: 08/08/20 15:58 Dose: Not Given Documented by: Gabapentin (Neurontin) 600 mg PO BEDTIME [facility] Last Admin: 08/08/20 19:53 Dose: Not Given Documented by: Lorazepam (Ativan) 1 mg IVPUSH Q6H PRN PRN Reason: Agitation Last Admin: 08/08/20 10:18 Dose: 1 mg Documented by: Losartan Potassium (Cozaar) 100 mg PO DAILY [facility] Last Admin: 08/08/20 07:39 Dose: 100 mg Documented by: Metformin HCl (Glucophage) 1,000 mg PO BID [facility] Last Admin: 08/08/20 23:04 Dose: Not Given Documented by: Metoprolol Tartrate (Lopressor) 50 mg PO BID [facility] Last Admin: 08/08/20 23:04 Dose: Not Given Documented by: Mirtazapine (Remeron) 22.5 mg PO BEDTIME [facility] Last Admin: 08/08/20 19:53 Dose: Not Given Documented by: Morphine Sulfate (Morphine) 2 mg IVPUSH Q2H PRN PRN Reason: Pain (severe 7-10) Multivitamins/Minerals/Vitamin C (Tab-A-Simon) 1 tab PO DAILY [facility] Last Admin: 08/08/20 07:39 Dose: 1 tab Documented by: Ondansetron HCl (Zofran) 4 mg IV Q6H PRN PRN Reason: Nausea/Vomiting Pantoprazole Sodium (Protonix) 40 mg PO ACBRK [facility] Last Admin: 08/08/20 06:38 Dose: 40 mg Documented by: Quetiapine Fumarate (Seroquel) 12.5 mg PO BID [facility] Last Admin: 08/08/20 19:54 Dose: Not Given Documented by: Temazepam (Restoril) 15 mg PO BEDTIME PRN PRN Reason: Sleep Discontinued Medications Ceftriaxone Sodium (Rocephin) 1 gm IVPUSH Q24H [facility] Last Admin: 08/07/20 21:17 Dose: Not Given Documented by: Enoxaparin Sodium (Lovenox) 30 mg SUBCUT Q24H [facility] Last Admin: 08/07/20 21:17 Dose: Not Given Documented by: Flumazenil (Romazicon) 0.2 mg IVPUSH ONETIME ONE Stop: 08/08/20 16:41 Last Admin: 08/08/20 16:52 Dose: 0.2 mg Documented by: Sodium Chloride (Normal Saline) 1,000 mls @ 100 mls/hr IV ASDIRECTED [facility] Stop: 08/08/20 05:29 Last Admin: 08/07/20 20:31 Dose: 100 mls/hr Documented by: - Exam General: Alert, Cooperative Psy/Mental Status: Agitated Sepsis Event Note - Evaluation Sepsis Screening Result: No Definite Risk - Focused Exam Vital Signs: Vital Signs Temp Pulse Resp BP Pulse Ox 08/08/20 19:29 98.8 F 82 21 H 115/45 L 93 L 08/08/20 16:00 97.8 F 75 36 H 118/61 87 L 08/08/20 12:00 98.1 F 72 20 98/50 L 92 L - Problem List & Annotations (1) Need for comfort care SNOMED Code(s): 123593387, 689660017 Code(s): KNR7737 - Status: Acute Current Visit: Yes (2) UTI, Urinary tract infectious disease SNOMED Code(s): 49400050 Code(s): N39.0 - URINARY TRACT INFECTION, SITE NOT SPECIFIED Status: Acute Current Visit: Yes (3) Agitation SNOMED Code(s): 649030516 Code(s): R45.1 - RESTLESSNESS AND AGITATION Status: Acute Current Visit: No (4) Altered mental status SNOMED Code(s): 783307609 Code(s): R41.82 - ALTERED MENTAL STATUS, UNSPECIFIED Status: Acute Current Visit: No Qualifiers: Altered mental status type: delirium Qualified Code(s): R41.0 - Disorientation, unspecified (5) Renal insufficiency SNOMED Code(s): 396298790, 984658537 Code(s): N28.9 - DISORDER OF KIDNEY AND URETER, UNSPECIFIED Status: Acute Current Visit: No - Problem List Review Problem List Initiated/Reviewed/Updated: Yes - My Orders Last 24 Hours: My Active Orders 08/08/20 09:30 Fluconazole [Diflucan] 150 mg PO DAILY 08/08/20 09:58 LORazepam [Ativan] 1 mg IVPUSH Q6H PRN 08/08/20 10:15 QUEtiapine [SEROqueL] 12.5 mg PO BID 08/08/20 16:36 Chest 1V Frontal [CR] Routine 08/08/20 16:37 Comfort Measures [OM.PC] Routine 08/09/20 05:11 C-REACTIVE PROTEIN [CHEM] AM LACTIC ACID [CHEM] AM 08/10/20 05:11 C-REACTIVE PROTEIN [CHEM] AM LACTIC ACID [CHEM] AM - Plan Plan:: Fortino was uncooperative initially with answering questions and allow physical exam. Consulted with Dr. camp, who patient regularly sees. Dr. Camp did evaluate Fortino today, which he was more cooperative. Initially we started Seroquel 12.5mg BID and Ativan 1mg q6h prn for agitation. This afternoon patient did start to decline. Oxygen saturation was in the high 80's on 2.5 L per nasal canula. Patient was slightly hypotensive. Dr. Camp present again for reevaluation. reviewed all labs on admission and CT of the brain. Dr. Camp consulted with daughter and niece of Fortino's current state. Discussed his guarded condition and declining status into detail with family. Code level reviewed with daughter and elected to proceed with Code 2. Dr. Camp was very concerned of patient's guarded status and family was advised to see patient d/t Fortino's declining status. Family did not want transfer at time. Patient will remain comfort care at this time.
[2020-08-09] MEDS: Acetaminophen Soln 160 MG/5 ML UD Cup PO PRN (04:53)
[2020-08-09] MEDS: Pantoprazole 40 MG Tab.CR PO SCH (06:06)
[2020-08-09] MEDS: Metoprolol Tartrate 50 MG Tab PO SCH ×2 (08:11→19:35)
[2020-08-09] MEDS: Losartan 100 MG Tab PO SCH (08:12)
[2020-08-09] MEDS: Amiodarone 200 MG Tab PO SCH (08:13)
[2020-08-09] MEDS: QUEtiapine 25 MG Tab PO SCH ×2 (08:13→19:37)
[2020-08-09] MEDS: Folic Acid 1 MG Tab PO SCH (08:14)
[2020-08-09] MEDS: Gabapentin 300 MG Cap PO SCH ×3 (08:14→19:36)
[2020-08-09] MEDS: amLODIPine 10 MG Tab PO SCH (08:14)
[2020-08-09] MEDS: Fluconazole 100 MG Tab PO SCH (08:18)
[2020-08-09] MEDS: Multivitamin Tab PO SCH (08:18)
[2020-08-09] MEDS: Aspirin 325 MG Tab PO SCH (08:18)
[2020-08-09] MEDS: metFORMIN 500 MG Tab PO SCH ×2 (08:18→19:32)
[2020-08-09] MEDS ORDERED: Levofloxacin/Dextrose 5%-Water 500 MG in Premix Bag 1 BAG IV ONE (09:00)
--- NOTE | 2020-08-09 16:45 | PCM.PN ---
- General Info Date of Service: 08/09/20 Subjective Update: ADMIT: Fortino is a 80 year old male that presented to the ER via private vehicle by his daughter. Daughter admits he became combative today and upon arrival initially refused getting out of [place]. It was noted patient to have altered mental status. Initially patient was alert on arrival but not orientated as he didn't know the year or where he was. The daughter had reported the patient was in [place] staying with her prior to coming back to [place] today. Daughter had appointment with Dr. Camp initially today for admission to [facility]. Fortino ended up getting COVID on Ayana robbin and was admitted to the hospital and discharged the 21 of July. Daughter had stated while the patient was admitted in the hospital he became confused and came down with dementia which the hospital had told her. The past couple of days the Fortino has become more forgetful, agitated, and has been swinging at her to punch her. Per ER provider he had admitted after his daughter left the room that he was very mad at her because she is taking his house away from him. He became more alert and orientated to place at that time. 08/08/2020 Fortino is very agitated this morning and not willing to cooperate with nursing staff or myself. Words are garbled at times and very difficult to understand. Patient will not take any medications. Says he is going home. 08/09/2020 Fortino has shown complete change today. Is alert. Able to ambulate on his own to the bathroom. Continues to have slurred sentences at times but will speak fluently at times as well. Patient is no longer agitated. Denies any complaints today. - Patient Data Vitals - Most Recent: Last Vital Signs Temp 98.4 F 08/09/20 11:25 Pulse 80 08/09/20 11:25 Resp 16 08/09/20 11:25 BP 135/64 08/09/20 11:25 Pulse Ox 93 L 08/09/20 11:25 Weight - Most Recent: 216 lb 6.4 oz I&O - Last 24 Hours: Intake & Output 08/09/20 08/09/20 08/09/20 06:59 14:59 22:59 Intake Total 250 Output Total 600 Balance -350 Lab Results Last 24 Hours: Laboratory Results - last 24 hr 08/08/20 08/09/20 08/09/20 Range/Units 19:26 05:00 05:11 WBC (5.0-10.0) 10^3/uL RBC (4.50-6.00) 10^6/uL Hgb (14.0-18.0) g/dL Hct (40.0-54.0) % MCV (82.0-94.0) fL MCH (27.0-32.0) pg MCHC (33.0-38.0) g/dL RDW Coeff of Lars (11.0-15.0) % Plt Count (150-400) 10^3/uL Neut % (Auto) (35-85) % Lymph % (Auto) (10-55) % [place] % (Auto) (0-16) % Eos % (Auto) (0-5) % Baso % (Auto) (0-3) % Neut # (Auto) (1.80-7.00) 10^3/uL Lymph # (Auto) (1.00-4.80) 10^3/uL [place] # (Auto) (0.00-0.80) 10^3/uL Eos # (Auto) (0.00-0.45) 10^3/uL Baso # (Auto) 10^3/uL Sodium 141 (136-145) mEq/L Potassium 4.6 (3.5-5.0) mEq/L Chloride 104 (98-106) mEq/L Carbon Dioxide 30 (21-32) mmol/L BUN 24 H (7-18) mg/dL Creatinine 1.9 H (0.7-1.3) mg/dL Est Cr Clr Drug Dosing 27.87 mL/min Estimated GFR (MDRD) 34 L (>=60) mL/min Glucose 128 H (75-99) mg/dL POC Glucose 233 H (75-105) mg/dl Lactic Acid 0.6 (0.4-2.0) mmol/L Calcium 8.7 (8.4-10.1) mg/dL C-Reactive Protein 16.2 H (0.2-0.8) mg/dL 08/09/20 08/09/20 Range/Units 07:00 08:01 WBC 6.3 (5.0-10.0) 10^3/uL RBC 3.91 L (4.50-6.00) 10^6/uL Hgb 11.0 L (14.0-18.0) g/dL Hct 35.3 L (40.0-54.0) % MCV 90.3 (82.0-94.0) fL MCH 28.1 (27.0-32.0) pg MCHC 31.2 L (33.0-38.0) g/dL RDW Coeff of Lars 13.2 (11.0-15.0) % Plt Count 180 (150-400) 10^3/uL Neut % (Auto) 49.5 (35-85) % Lymph % (Auto) 32.5 (10-55) % [place] % (Auto) 10.2 (0-16) % Eos % (Auto) 7.2 H (0-5) % Baso % (Auto) 0.6 (0-3) % Neut # (Auto) 3.09 (1.80-7.00) 10^3/uL Lymph # (Auto) 2.03 (1.00-4.80) 10^3/uL [place] # (Auto) 0.64 (0.00-0.80) 10^3/uL Eos # (Auto) 0.45 (0.00-0.45) 10^3/uL Baso # (Auto) 0.04 10^3/uL Sodium (136-145) mEq/L Potassium (3.5-5.0) mEq/L Chloride (98-106) mEq/L Carbon Dioxide (21-32) mmol/L BUN (7-18) mg/dL Creatinine (0.7-1.3) mg/dL Est Cr Clr Drug Dosing mL/min Estimated GFR (MDRD) (>=60) mL/min Glucose (75-99) mg/dL POC Glucose 195 H (75-105) mg/dl Lactic Acid (0.4-2.0) mmol/L Calcium (8.4-10.1) mg/dL C-Reactive Protein (0.2-0.8) mg/dL Yeison Results Last 24 Hours: Microbiology 08/07/20 19:15 Urine Culture - Final Urine, Catheterized YEAST 08/07/20 18:00 Aerobic Blood Culture - Preliminary Blood - Venous - Lab Draw NO GROWTH AFTER 1 DAY Anaerobic Blood Culture - Preliminary NO GROWTH AFTER 1 DAY 08/07/20 18:00 Aerobic Blood Culture - Preliminary Blood - Venous NO GROWTH AFTER 1 DAY Anaerobic Blood Culture - Preliminary NO GROWTH AFTER 1 DAY Med Orders - Current: Current Medications Acetaminophen (Tylenol Solution) 640 mg PO Q4H PRN PRN Reason: Pain (Mild 1-3)/fever Last Admin: 08/09/20 04:53 Dose: 640 mg Documented by: Hydrocodone Bitart/Acetaminophen ([place] 325-5 Mg) 1 tab PO Q4H PRN PRN Reason: Pain (moderate 4-6) Amiodarone HCl (Cordarone) 200 mg PO DAILY [facility] Last Admin: 08/09/20 08:13 Dose: 200 mg Documented by: Amlodipine Besylate (Norvasc) 10 mg PO DAILY [facility] Last Admin: 08/09/20 08:14 Dose: Not Given Documented by: Aspirin (Aspirin) 325 mg PO DAILY [facility] Last Admin: 08/09/20 08:18 Dose: Not Given Documented by: Atorvastatin Calcium (Lipitor) 40 mg PO BEDTIME [facility] Last Admin: 08/08/20 19:53 Dose: Not Given Documented by: Enoxaparin Sodium (Lovenox) 30 mg SUBCUT Q24H [facility] Last Admin: 08/08/20 19:32 Dose: 30 mg Documented by: Fluconazole (Diflucan) 150 mg PO DAILY [facility] Last Admin: 08/09/20 08:18 Dose: Not Given Documented by: Folic Acid (Folic Acid) 1 mg PO DAILY [facility] Last Admin: 08/09/20 08:14 Dose: Not Given Documented by: Gabapentin (Neurontin) 300 mg PO 0800,1600 [facility] Last Admin: 08/09/20 15:35 Dose: 300 mg Documented by: Gabapentin (Neurontin) 600 mg PO BEDTIME [facility] Last Admin: 08/08/20 19:53 Dose: Not Given Documented by: Levofloxacin/Dextrose 250 mg/ (Premix) 50 mls @ 50 mls/hr IV Q24H [facility] Lorazepam (Ativan) 1 mg IVPUSH Q6H PRN PRN Reason: Agitation Last Admin: 08/08/20 10:18 Dose: 1 mg Documented by: Losartan Potassium (Cozaar) 100 mg PO DAILY [facility] Last Admin: 08/09/20 08:12 Dose: 100 mg Documented by: Metformin HCl (Glucophage) 1,000 mg PO BID [facility] Last Admin: 08/09/20 08:18 Dose: Not Given Documented by: Metoprolol Tartrate (Lopressor) 50 mg PO BID [facility] Last Admin: 08/09/20 08:11 Dose: 50 mg Documented by: Mirtazapine (Remeron) 22.5 mg PO BEDTIME [facility] Last Admin: 08/08/20 19:53 Dose: Not Given Documented by: Morphine Sulfate (Morphine) 2 mg IVPUSH Q2H PRN PRN Reason: Pain (severe 7-10) Multivitamins/Minerals/Vitamin C (Tab-A-Simon) 1 tab PO DAILY [facility] Last Admin: 08/09/20 08:18 Dose: Not Given Documented by: Nystatin (Nystop) 0 gm TOP BID [facility] Ondansetron HCl (Zofran) 4 mg IV Q6H PRN PRN Reason: Nausea/Vomiting Pantoprazole Sodium (Protonix) 40 mg PO ACBRK [facility] Last Admin: 08/09/20 06:06 Dose: 40 mg Documented by: Quetiapine Fumarate (Seroquel) 12.5 mg PO BID [facility] Last Admin: 08/09/20 08:13 Dose: 12.5 mg Documented by: Temazepam (Restoril) 15 mg PO BEDTIME PRN PRN Reason: Sleep Discontinued Medications Acetaminophen (Tylenol) 650 mg PO Q4H PRN PRN Reason: Pain (Mild 1-3)/fever Ceftriaxone Sodium (Rocephin) 1 gm IVPUSH Q24H [facility] Last Admin: 08/07/20 21:17 Dose: Not Given Documented by: Ceftriaxone Sodium (Rocephin) 1 gm IVPUSH Q24H [facility] Last Admin: 08/08/20 19:33 Dose: 1 gm Documented by: Enoxaparin Sodium (Lovenox) 30 mg SUBCUT Q24H [facility] Last Admin: 08/07/20 21:17 Dose: Not Given Documented by: Flumazenil (Romazicon) 0.2 mg IVPUSH ONETIME ONE Stop: 08/08/20 16:41 Last Admin: 08/08/20 16:52 Dose: 0.2 mg Documented by: Sodium Chloride (Normal Saline) 1,000 mls @ 100 mls/hr IV ASDIRECTED [facility] Stop: 08/08/20 05:29 Last Admin: 08/07/20 20:31 Dose: 100 mls/hr Documented by: Levofloxacin/Dextrose 500 mg/ (Premix) 100 mls @ 100 mls/hr IV ONETIME ONE Stop: 08/09/20 09:59 Last Admin: 08/09/20 10:17 Dose: 100 mls/hr Documented by: - Exam General: Alert, Cooperative, No Acute Distress Lungs: Normal Respiratory Effort, Decreased Breath Sounds, Crackles Cardiovascular: Regular Rate, Regular Rhythm GI/Abdominal Exam: Normal Bowel Sounds, Soft, No Distention Extremities: Pedal Edema, Other (chronic venous stasis) Neurological: No New Focal Deficit. No: Normal Speech Psy/Mental Status: Alert. No: Agitated Sepsis Event Note - Evaluation Sepsis Screening Result: No Definite Risk - Focused Exam Vital Signs: Vital Signs Temp Pulse Pulse Resp BP BP Pulse Ox 08/09/20 11:25 98.4 F 80 16 135/64 93 L 08/09/20 08:14 130/71 08/09/20 08:12 130/71 08/09/20 08:11 94 130/71 08/09/20 08:00 98.6 F 94 18 130/71 93 L - Problem List & Annotations (1) UTI, Urinary tract infectious disease SNOMED Code(s): 08971768 Code(s): N39.0 - URINARY TRACT INFECTION, SITE NOT SPECIFIED Status: Acute Current Visit: Yes (2) Agitation SNOMED Code(s): 918410261 Code(s): R45.1 - RESTLESSNESS AND AGITATION Status: Acute Current Visit: No (3) Altered mental status SNOMED Code(s): 097033513 Code(s): R41.82 - ALTERED MENTAL STATUS, UNSPECIFIED Status: Acute Current Visit: No Qualifiers: Altered mental status type: delirium Qualified Code(s): R41.0 - Disorientation, unspecified (4) Renal insufficiency SNOMED Code(s): 259002607, 846656422 Code(s): N28.9 - DISORDER OF KIDNEY AND URETER, UNSPECIFIED Status: Acute Current Visit: No (5) Palliative care status SNOMED Code(s): 095720279 Code(s): Z51.5 - ENCOUNTER FOR PALLIATIVE CARE Status: Acute Current Visit: Yes - Problem List Review Problem List Initiated/Reviewed/Updated: Yes - My Orders Last 24 Hours: My Active Orders 08/08/20 16:36 Chest 1V Frontal [CR] Routine 08/08/20 16:37 Comfort Measures [OM.PC] Routine 08/09/20 20:00 Nystatin [Nystop] 0 gm TOP BID 08/10/20 05:11 C-REACTIVE PROTEIN [CHEM] AM LACTIC ACID [CHEM] AM 08/10/20 08:00 Levofloxacin/Dextrose 5%-Water [Levaquin in D5W 250 MG/50 ML] 250 mg Premix Bag 1 bag IV Q24H - Plan Plan:: Fortino was uncooperative initially with answering questions and allow physical exam. Consulted with Dr. camp, who patient regularly sees. Dr. Camp did evaluate Fortino today, which he was more cooperative. Initially we started Seroquel 12.5mg BID and Ativan 1mg q6h prn for agitation. This afternoon patient did start to decline. Oxygen saturation was in the high 80's on 2.5 L per nasal canula. Patient was slightly hypotensive. Dr. Camp present again for reevaluation. reviewed all labs on admission and CT of the brain. Dr. Camp consulted with daughter and niece of Fortino's current state. Discussed his guarded condition and declining status into detail with family. Code level reviewed with daughter and elected to proceed with Code 2. Dr. Camp was very concerned of patient's guarded status and family was advised to see patient d/t Fortino's declining status. Family did not want transfer at time. Patient will remain comfort care at this time. 08/09/2020 Fortino has shown significant improvement today from yesterday. Patient is alert and answering questions. Continues to have slurring of words but orientated to person and place. Will continue with IV antibiotics. Patient switched to palliative status. Question whether patient had altered mental status secondary to infection since treating with antibiotics. Patient did have elevated lactic acid which has improved to normal range. CRP elevated today at 16 and will closely follow. Dr. Camp did evaluate patient and believes patient may have had a CVA either in acute vs subacute phase. He did discuss into detail with family as well. CT head was negative on admission.
[2020-08-09] MEDS: atorvaSTATin 20 MG Tab PO SCH (19:35)
[2020-08-09] MEDS: Mirtazapine 15 MG Tab PO SCH (19:36)
[2020-08-09] MEDS: Nystatin Topical Powder 15 GM Bottle TOP SCH (19:38)
[2020-08-09] MEDS: Enoxaparin 30 MG/0.3 ML Syringe SUBCUT SCH (19:41)
[2020-08-10] MEDS: Pantoprazole 40 MG Tab.CR PO SCH (06:03)
[2020-08-10] MEDS: Acetaminophen Soln 160 MG/5 ML UD Cup PO PRN (07:52)
[2020-08-10] MEDS: metFORMIN 500 MG Tab PO SCH ×2 (07:53→19:29)
[2020-08-10] MEDS: Fluconazole 100 MG Tab PO SCH (07:54)
[2020-08-10] MEDS: Folic Acid 1 MG Tab PO SCH (07:55)
[2020-08-10] MEDS: QUEtiapine 25 MG Tab PO SCH ×2 (07:55→19:32)
[2020-08-10] MEDS: Gabapentin 300 MG Cap PO SCH ×3 (07:55→19:32)
[2020-08-10] MEDS: Losartan 100 MG Tab PO SCH (07:55)
[2020-08-10] MEDS: Aspirin 325 MG Tab PO SCH (07:55)
[2020-08-10] MEDS: amLODIPine 10 MG Tab PO SCH (07:56)
[2020-08-10] MEDS: Multivitamin Tab PO SCH (07:56)
[2020-08-10] MEDS: Amiodarone 200 MG Tab PO SCH (07:56)
[2020-08-10] MEDS: Metoprolol Tartrate 50 MG Tab PO SCH ×2 (07:56→19:33)
[2020-08-10] MEDS: Levofloxacin/Dextrose 5%-Water 250 MG in Premix Bag 1 BAG IV SCH (07:57)
[2020-08-10] MEDS: Nystatin Topical Powder 15 GM Bottle TOP SCH ×2 (07:58→19:33)
--- NOTE | 2020-08-10 16:42 | PCM.PN ---
- General Info Date of Service: 08/10/20 Admission Dx/Problem (Free Text): Agitation Subjective Update: ADMIT: Fortino is a 80 year old male that presented to the ER via private vehicle by his daughter. Daughter admits he became combative today and upon arrival initially refused getting out of onset. It was noted patient to have altered mental status. Initially patient was alert on arrival but not orientated as he didn't know the year or where he was. The daughter had reported the patient was in [place] staying with her prior to coming back to [place] today. Daughter had appointment with Dr. Camp initially today for admission to detention. Fortino ended up getting COVID on Ayana robbin and was admitted to the hospital and discharged the 21 of July. Daughter had stated while the patient was admitted in the hospital he became confused and came down with dementia which the hospital had told her. The past couple of days the Fortino has become more forgetful, agitated, and has been swinging at her to punch her. Per ER provider he had admitted after his daughter left the room that he was very mad at her because she is taking his house away from him. He became more alert and orientated to place at that time. 08/08/2020 Fortino is very agitated this morning and not willing to cooperate with nursing staff or myself. Words are garbled at times and very difficult to understand. Patient will not take any medications. Says he is going home. 08/09/2020 Fortino has shown complete change today. Is alert. Able to ambulate on his own to the bathroom. Continues to have slurred sentences at times but will speak fluently at times as well. Patient is no longer agitated. Denies any complaints today. 08/10/2020 Fortino is alert and orientated this morning. Having normal conversation. Some difficulty with slurring of words but continues to have clear speech at times. He denies any pain anywhere. No further agitation. Patient has been getting up to bathroom on his own. - Review of Systems General: Reports: No Symptoms HEENT: Reports: No Symptoms Pulmonary: Reports: No Symptoms Cardiovascular: Reports: No Symptoms Gastrointestinal: Reports: No Symptoms Genitourinary: Reports: No Symptoms Musculoskeletal: Reports: No Symptoms Skin: Reports: No Symptoms Neurological: Reports: No Symptoms Psychiatric: Reports: No Symptoms - Patient Data Vitals - Most Recent: Last Vital Signs Temp 99.0 F 08/10/20 12:00 Pulse 84 08/10/20 12:00 Resp 18 08/10/20 12:00 BP 114/64 08/10/20 12:00 Pulse Ox 95 08/10/20 12:00 Weight - Most Recent: 216 lb 6.4 oz I&O - Last 24 Hours: Intake & Output 08/10/20 08/10/20 08/10/20 06:59 14:59 22:59 Intake Total 450 437 Output Total 900 Balance -450 437 Lab Results Last 24 Hours: Laboratory Results - last 24 hr 08/09/20 08/10/20 08/10/20 Range/Units 19:34 06:50 06:50 WBC 5.4 (5.0-10.0) 10^3/uL RBC 4.16 L (4.50-6.00) 10^6/uL Hgb 11.6 L (14.0-18.0) g/dL Hct 36.9 L (40.0-54.0) % MCV 88.7 (82.0-94.0) fL MCH 27.9 (27.0-32.0) pg MCHC 31.4 L (33.0-38.0) g/dL RDW Coeff of Lars 12.7 (11.0-15.0) % Plt Count 203 (150-400) 10^3/uL Neut % (Auto) 58.8 (35-85) % Lymph % (Auto) 27.5 (10-55) % [place] % (Auto) 7.9 (0-16) % Eos % (Auto) 5.2 H (0-5) % Baso % (Auto) 0.6 (0-3) % Neut # (Auto) 3.18 (1.80-7.00) 10^3/uL Lymph # (Auto) 1.49 (1.00-4.80) 10^3/uL [place] # (Auto) 0.43 (0.00-0.80) 10^3/uL Eos # (Auto) 0.28 (0.00-0.45) 10^3/uL Baso # (Auto) 0.03 10^3/uL Sodium 135 L (136-145) mEq/L Potassium 5.1 H (3.5-5.0) mEq/L Chloride 101 (98-106) mEq/L Carbon Dioxide 31 (21-32) mmol/L BUN 18 (7-18) mg/dL Creatinine 1.7 H (0.7-1.3) mg/dL Est Cr Clr Drug Dosing 31.15 mL/min Estimated GFR (MDRD) 39 L (>=60) mL/min Glucose 129 H (75-99) mg/dL POC Glucose 182 H (75-105) mg/dl Lactic Acid (0.4-2.0) mmol/L Calcium 8.3 L (8.4-10.1) mg/dL C-Reactive Protein 10.5 H (0.2-0.8) mg/dL 08/10/20 Range/Units 06:50 WBC (5.0-10.0) 10^3/uL RBC (4.50-6.00) 10^6/uL Hgb (14.0-18.0) g/dL Hct (40.0-54.0) % MCV (82.0-94.0) fL MCH (27.0-32.0) pg MCHC (33.0-38.0) g/dL RDW Coeff of Lars (11.0-15.0) % Plt Count (150-400) 10^3/uL Neut % (Auto) (35-85) % Lymph % (Auto) (10-55) % [place] % (Auto) (0-16) % Eos % (Auto) (0-5) % Baso % (Auto) (0-3) % Neut # (Auto) (1.80-7.00) 10^3/uL Lymph # (Auto) (1.00-4.80) 10^3/uL [place] # (Auto) (0.00-0.80) 10^3/uL Eos # (Auto) (0.00-0.45) 10^3/uL Baso # (Auto) 10^3/uL Sodium (136-145) mEq/L Potassium (3.5-5.0) mEq/L Chloride (98-106) mEq/L Carbon Dioxide (21-32) mmol/L BUN (7-18) mg/dL Creatinine (0.7-1.3) mg/dL Est Cr Clr Drug Dosing mL/min Estimated GFR (MDRD) (>=60) mL/min Glucose (75-99) mg/dL POC Glucose (75-105) mg/dl Lactic Acid 0.9 (0.4-2.0) mmol/L Calcium (8.4-10.1) mg/dL C-Reactive Protein (0.2-0.8) mg/dL Yeison Results Last 24 Hours: Microbiology 08/07/20 18:00 Aerobic Blood Culture - Preliminary Blood - Venous - Lab Draw NO GROWTH AFTER 2 DAYS Anaerobic Blood Culture - Preliminary NO GROWTH AFTER 2 DAYS 08/07/20 18:00 Aerobic Blood Culture - Preliminary Blood - Venous NO GROWTH AFTER 2 DAYS Anaerobic Blood Culture - Preliminary NO GROWTH AFTER 2 DAYS Med Orders - Current: Current Medications Acetaminophen (Tylenol Solution) 640 mg PO Q4H PRN PRN Reason: Pain (Mild 1-3)/fever Last Admin: 08/10/20 07:52 Dose: 640 mg Documented by: Hydrocodone Bitart/Acetaminophen ([place] 325-5 Mg) 1 tab PO Q4H PRN PRN Reason: Pain (moderate 4-6) Last Admin: 08/09/20 19:09 Dose: 1 tab Documented by: Amiodarone HCl (Cordarone) 200 mg PO DAILY [facility] Last Admin: 08/10/20 07:56 Dose: 200 mg Documented by: Amlodipine Besylate (Norvasc) 10 mg PO DAILY [facility] Last Admin: 08/10/20 07:56 Dose: 10 mg Documented by: Aspirin (Aspirin) 325 mg PO DAILY [facility] Last Admin: 08/10/20 07:55 Dose: 325 mg Documented by: Atorvastatin Calcium (Lipitor) 40 mg PO BEDTIME [facility] Last Admin: 08/09/20 19:35 Dose: 40 mg Documented by: Enoxaparin Sodium (Lovenox) 30 mg SUBCUT Q24H [facility] Last Admin: 08/09/20 19:41 Dose: 30 mg Documented by: Fluconazole (Diflucan) 150 mg PO DAILY [facility] Last Admin: 08/10/20 07:54 Dose: 150 mg Documented by: Folic Acid (Folic Acid) 1 mg PO DAILY [facility] Last Admin: 08/10/20 07:55 Dose: 1 mg Documented by: Gabapentin (Neurontin) 300 mg PO 0800,1600 [facility] Last Admin: 08/10/20 15:29 Dose: 300 mg Documented by: Gabapentin (Neurontin) 600 mg PO BEDTIME [facility] Last Admin: 08/09/20 19:36 Dose: 600 mg Documented by: Levofloxacin/Dextrose 250 mg/ (Premix) 50 mls @ 50 mls/hr IV Q24H [facility] Last Admin: 08/10/20 07:57 Dose: 50 mls/hr Documented by: Lorazepam (Ativan) 1 mg IVPUSH Q6H PRN PRN Reason: Agitation Last Admin: 08/08/20 10:18 Dose: 1 mg Documented by: Losartan Potassium (Cozaar) 100 mg PO DAILY [facility] Last Admin: 08/10/20 07:55 Dose: 100 mg Documented by: Metformin HCl (Glucophage) 1,000 mg PO BID [facility] Last Admin: 08/10/20 07:53 Dose: 1,000 mg Documented by: Metoprolol Tartrate (Lopressor) 50 mg PO BID [facility] Last Admin: 08/10/20 07:56 Dose: 50 mg Documented by: Mirtazapine (Remeron) 22.5 mg PO BEDTIME [facility] Last Admin: 08/09/20 19:36 Dose: 22.5 mg Documented by: Morphine Sulfate (Morphine) 2 mg IVPUSH Q2H PRN PRN Reason: Pain (severe 7-10) Multivitamins/Minerals/Vitamin C (Tab-A-Simon) 1 tab PO DAILY [facility] Last Admin: 08/10/20 07:56 Dose: 1 tab Documented by: Nystatin (Nystop) 0 gm TOP BID [facility] Last Admin: 08/10/20 07:58 Dose: 1 applic Documented by: Ondansetron HCl (Zofran) 4 mg IV Q6H PRN PRN Reason: Nausea/Vomiting Pantoprazole Sodium (Protonix) 40 mg PO ACBRK [facility] Last Admin: 08/10/20 06:03 Dose: 40 mg Documented by: Quetiapine Fumarate (Seroquel) 12.5 mg PO BID [facility] Last Admin: 08/10/20 07:55 Dose: 12.5 mg Documented by: Temazepam (Restoril) 15 mg PO BEDTIME PRN PRN Reason: Sleep Discontinued Medications Acetaminophen (Tylenol) 650 mg PO Q4H PRN PRN Reason: Pain (Mild 1-3)/fever Ceftriaxone Sodium (Rocephin) 1 gm IVPUSH Q24H [facility] Last Admin: 08/07/20 21:17 Dose: Not Given Documented by: Ceftriaxone Sodium (Rocephin) 1 gm IVPUSH Q24H [facility] Last Admin: 08/08/20 19:33 Dose: 1 gm Documented by: Enoxaparin Sodium (Lovenox) 30 mg SUBCUT Q24H [facility] Last Admin: 08/07/20 21:17 Dose: Not Given Documented by: Flumazenil (Romazicon) 0.2 mg IVPUSH ONETIME ONE Stop: 08/08/20 16:41 Last Admin: 08/08/20 16:52 Dose: 0.2 mg Documented by: Sodium Chloride (Normal Saline) 1,000 mls @ 100 mls/hr IV ASDIRECTED [facility] Stop: 08/08/20 05:29 Last Admin: 08/07/20 20:31 Dose: 100 mls/hr Documented by: Levofloxacin/Dextrose 500 mg/ (Premix) 100 mls @ 100 mls/hr IV ONETIME ONE Stop: 08/09/20 09:59 Last Admin: 08/09/20 10:17 Dose: 100 mls/hr Documented by: - Exam General: Alert, Oriented, Cooperative, No Acute Distress Lungs: Decreased Breath Sounds, Rhonchi. No: Crackles, Rales Cardiovascular: Regular Rate, Regular Rhythm GI/Abdominal Exam: Normal Bowel Sounds, Soft, Non-Tender, No Organomegaly, No Distention Extremities: Normal Inspection, No Pedal Edema Skin: Warm, Dry, Intact Neurological: No New Focal Deficit Psy/Mental Status: Alert, Normal Affect Sepsis Event Note - Evaluation Sepsis Screening Result: No Definite Risk - Focused Exam Vital Signs: Vital Signs Temp Pulse Pulse Resp BP BP Pulse Ox 08/10/20 12:00 99.0 F 84 18 114/64 95 08/10/20 07:56 102 H 125/68 08/10/20 07:55 125/68 08/10/20 07:50 102.3 F H 103 H 18 125/68 94 L - Problem List & Annotations (1) UTI, Urinary tract infectious disease SNOMED Code(s): 90388657 Code(s): N39.0 - URINARY TRACT INFECTION, SITE NOT SPECIFIED Status: Acute Current Visit: Yes (2) Agitation SNOMED Code(s): 783079219 Code(s): R45.1 - RESTLESSNESS AND AGITATION Status: Acute Current Visit: No (3) Altered mental status SNOMED Code(s): 145410761 Code(s): R41.82 - ALTERED MENTAL STATUS, UNSPECIFIED Status: Acute Current Visit: No Qualifiers: Altered mental status type: delirium Qualified Code(s): R41.0 - Disorientation, unspecified (4) Renal insufficiency SNOMED Code(s): 296583188, 780365644 Code(s): N28.9 - DISORDER OF KIDNEY AND URETER, UNSPECIFIED Status: Acute Current Visit: No (5) Palliative care status SNOMED Code(s): 335943119 Code(s): Z51.5 - ENCOUNTER FOR PALLIATIVE CARE Status: Acute Current Visit: Yes - Problem List Review Problem List Initiated/Reviewed/Updated: Yes - My Orders Last 24 Hours: My Active Orders 08/09/20 20:00 Nystatin [Nystop] 0 gm TOP BID 08/10/20 08:00 Levofloxacin/Dextrose 5%-Water [Levaquin in D5W 250 MG/50 ML] 250 mg Premix Bag 1 bag IV Q24H 08/11/20 05:11 BASIC METABOLIC PANEL,BMP [CHEM] AM CBC WITH AUTO DIFF [HEME] AM CRP [C-REACTIVE PROTEIN] [CHEM] AM - Plan Plan:: Fortino was uncooperative initially with answering questions and allow physical exam. Consulted with Dr. camp, who patient regularly sees. Dr. Camp did evaluate Fortino today, which he was more cooperative. Initially we started Seroquel 12.5mg BID and Ativan 1mg q6h prn for agitation. This afternoon patient did start to decline. Oxygen saturation was in the high 80's on 2.5 L per nasal canula. Patient was slightly hypotensive. Dr. Camp present again for reevaluation. reviewed all labs on admission and CT of the brain. Dr. Camp consulted with daughter and niece of Fortino's current state. Discussed his guarded condition and declining status into detail with family. Code level reviewed with daughter and elected to proceed with Code 2. Dr. Camp was very concerned of patient's guarded status and family was advised to see patient d/t Fortino's declining status. Family did not want transfer at time. Patient will remain comfort care at this time. 08/09/2020 Fortino has shown significant improvement today from yesterday. Patient is alert and answering questions. Continues to have slurring of words but orientated to person and place. Will continue with IV antibiotics. Patient switched to palliative status. Question whether patient had altered mental status secondary to infection since treating with antibiotics. Patient did have elevated lactic acid which has improved to normal range. CRP elevated today at 16 and will closely follow. Dr. Camp did evaluate patient and believes patient may have had a CVA either in acute vs subacute phase. He did discuss into detail with family as well. CT head was negative on admission. 08/10/2020 Fortino appears to be showing improvement. Again speech is fluent at times. Answering all questions appropriately. Talked about his family today and prior career as an electrician machine shop. CRP is improving. Labs otherwise stable. Discussed with [facility]nie [facility], possible detention placement. Patient at this time is unable to care for himself. Discussed with Dr. Camp and is in agreement.
[2020-08-10] MEDS: Enoxaparin 30 MG/0.3 ML Syringe SUBCUT SCH (19:31)
[2020-08-10] MEDS: Mirtazapine 15 MG Tab PO SCH (19:31)
[2020-08-10] MEDS: atorvaSTATin 20 MG Tab PO SCH (19:33)
[2020-08-11] MEDS: Acetaminophen Soln 160 MG/5 ML UD Cup PO PRN ×2 (00:37→12:50)
[2020-08-11] MEDS: Aspirin 325 MG Tab PO SCH (07:30)
[2020-08-11] MEDS: metFORMIN 500 MG Tab PO SCH (07:30)
[2020-08-11] MEDS: QUEtiapine 25 MG Tab PO SCH (07:30)
[2020-08-11] MEDS: Folic Acid 1 MG Tab PO SCH (07:31)
[2020-08-11] MEDS: Amiodarone 200 MG Tab PO SCH (07:31)
[2020-08-11] MEDS: Multivitamin Tab PO SCH (07:31)
[2020-08-11] MEDS: Gabapentin 300 MG Cap PO SCH (07:31)
[2020-08-11] MEDS: Losartan 100 MG Tab PO SCH (07:31)
[2020-08-11] MEDS: Pantoprazole 40 MG Tab.CR PO SCH (07:31)
[2020-08-11] MEDS: Levofloxacin/Dextrose 5%-Water 250 MG in Premix Bag 1 BAG IV SCH (07:32)
[2020-08-11] MEDS: Metoprolol Tartrate 50 MG Tab PO SCH (07:32)
[2020-08-11] MEDS: amLODIPine 10 MG Tab PO SCH (07:32)
[2020-08-11] MEDS: Nystatin Topical Powder 15 GM Bottle TOP SCH (07:32)
[2020-08-11] MEDS: Fluconazole 100 MG Tab PO SCH (08:46)
[2020-08-11 12:50] VITALS: BP 103/53; PULSE 67
--- NOTE | 2020-08-12 00:20 | PCM.DCSUM1 ---
Discharge Summary - Hospital Course HPI Initial Comments: Fortino is a 80 year old male that presented to the ER via private vehicle by his daughter. Daughter admits he became combative today and upon arrival initially refused getting out of [place]. It was noted patient to have altered mental status. Initially patient was alert on arrival but not orientated as he didn't know the year or where he was. The daughter had reported the patient was in [place] staying with her prior to coming back to [place] today. Daughter had appointment with Dr. Camp initially today for admission to residential. Fortino ended up getting COVID on Ayana robbin and was admitted to the hospital and discharged the 21 of July. Daughter had stated while the patient was admitted in the hospital he became confused and came down with dementia which the hospital had told her. The past couple of days the Fortino has become more f orgetful, agitated, and has been swinging at her to punch her. Per ER provider he had admitted after his daughter left the room that he was very mad at her because she is taking his house away from him. He became more alert and orientated to place at that time. - Discharge Data Discharge Date: 08/11/20 Discharge Disposition: DC/Tfer W/I Hosp To Swing 61 Condition: Fair - Referral to Home Health Primary Care Physician: PCP None - Discharge Diagnosis/Problem(s) (1) UTI, Urinary tract infectious disease SNOMED Code(s): 17869568 ICD Code: N39.0 - URINARY TRACT INFECTION, SITE NOT SPECIFIED Status: Acute (2) Agitation SNOMED Code(s): 076159892 ICD Code: R45.1 - RESTLESSNESS AND AGITATION Status: Acute (3) Altered mental status SNOMED Code(s): 912080986 ICD Code: R41.82 - ALTERED MENTAL STATUS, UNSPECIFIED Status: Acute Qualifiers: Altered mental status type: transient alteration of awareness Qualified Code(s): R40.4 - Transient alteration of awareness (4) Renal insufficiency SNOMED Code(s): 353987377, 012751195 ICD Code: N28.9 - DISORDER OF KIDNEY AND URETER, UNSPECIFIED Status: Acute (5) Palliative care status SNOMED Code(s): 931109097 ICD Code: Z51.5 - ENCOUNTER FOR PALLIATIVE CARE Status: Acute - Patient Summary/Data Consults: Consultations 08/11/20 08:38 PT Evaluation and Treatment [CONS] Routine - Discharge Plan *PRESCRIPTION DRUG MONITORING PROGRAM REVIEWED*: Not Applicable *COPY OF PRESCRIPTION DRUG MONITORING REPORT IN PATIENT MARY: Not Applicable Home Medications: Home Meds Gabapentin 300 mg PO ASDIRECTED 11/22/13 [History] amLODIPine Besylate [Amlodipine Besylate] 10 mg PO DAILY 11/22/13 [History] Losartan Potassium [Cozaar] 100 mg PO DAILY 11/24/15 [History] Aspirin 325 mg PO DAILY 01/24/16 [History] Folic Acid 1 mg PO DAILY 01/24/16 [History] Metoprolol Tartrate [Lopressor] 50 mg PO BID 01/24/16 [History] Mirtazapine 1.5 tab PO BEDTIME 01/24/16 [History] Multivitamin [Daily Multiple Vitamin] 1 tab PO DAILY 01/24/16 [History] Omeprazole 20 mg PO DAILY 01/24/16 [History] atorvaSTATin [Lipitor] 40 mg PO BEDTIME 01/24/16 [History] Amiodarone [Cordarone] 200 mg PO DAILY #30 tablet 01/27/16 [Rx] metFORMIN HCl [Metformin HCl] 1,000 mg PO BID 12/26/19 [History] Forms: ED Department Discharge Referrals: PCP,None [Primary Care Provider] - - Discharge Summary/Plan Comment DC Time >30 min.: Yes Discharge Summary/Plan Comment: Patient underwent CT of the brain on admission did show age indeterminate lacunar infarcts. Labs initially did show UTI as well. Patient has indwelling catheter on admission. Patient initially did have a decline in status and family was consulted via Dr. Camp to discuss Fortino's guarded and declining condition. Patient was unresponsive at that time. Discussion included CVA vs sepsis. Patient was started on antibiotics. Blood cultures were negative. Urine culture did show yeast and started on Diflucan. Chest xray negative for infiltrative process. Remarkably, Fortino did show significant improvement the day after and had no further agitation. Since improvement, patient continues to have garbled speech but is speaking in full sentences. At times, speech is fluent. With concerns of unable to care for himself it was decided patient would benefit from residential placement. Daughter has been in agreement and had planned for this prior to admission. Will discharge today to swing bed for ongoing IV antibiotics, physical therapy for strengthening. Please use discharge summary for Swing Bed admission. - General Info Date of Service: 08/11/20 Admission Dx/Problem (Free Text: Agitation Subjective Update: 08/08/2020 Fortino is very agitated this morning and not willing to cooperate with nursing staff or myself. Words are garbled at times and very difficult to understand. Patient will not take any medications. Says he is going home. 08/09/2020 Fortino has shown complete change today. Is alert. Able to ambulate on his own to the bathroom. Continues to have slurred sentences at times but will speak fluently at times as well. Patient is no longer agitated. Denies any complaints today. 08/10/2020 Fortino is alert and orientated this morning. Having normal conversation. Some difficulty with slurring of words but continues to have clear speech at times. He denies any pain anywhere. No further agitation. Patient has been getting up to bathroom on his own. 08/11/2020 Patient is alert this morning. Continues to have garbled speech but is answering questions in full sentences. Patient denies any complaints today. Nursing staff has had patient up to the bathroom. Ambulation is slow but is steady with 1 person assist. Functional Status: Reports: Pain Controlled, Tolerating Diet, Ambulating, Urinating - Review of Systems General: Reports: No Symptoms HEENT: Reports: No Symptoms Pulmonary: Reports: No Symptoms Cardiovascular: Reports: No Symptoms Gastrointestinal: Reports: No Symptoms Genitourinary: Reports: No Symptoms Musculoskeletal: Reports: No Symptoms Skin: Reports: No Symptoms Neurological: Reports: No Symptoms - Patient Data Vitals - Most Recent: Last Vital Signs Temp 98.3 F 08/11/20 12:00 Pulse 67 08/11/20 12:00 Resp 18 08/11/20 12:00 BP 103/53 L 08/11/20 12:00 Pulse Ox 93 L 08/11/20 12:00 Weight - Most Recent: 216 lb 6.4 oz Lab Results - Last 24 hrs: Laboratory Results - last 24 hr 08/11/20 08/11/20 08/11/20 Range/Units 06:55 06:55 07:29 WBC 7.0 (5.0-10.0) 10^3/uL RBC 3.99 L (4.50-6.00) 10^6/uL Hgb 11.1 L (14.0-18.0) g/dL Hct 35.7 L (40.0-54.0) % MCV 89.5 (82.0-94.0) fL MCH 27.8 (27.0-32.0) pg MCHC 31.1 L (33.0-38.0) g/dL RDW Coeff of Lars 12.8 (11.0-15.0) % Plt Count 248 (150-400) 10^3/uL Neut % (Auto) 48.2 (35-85) % Lymph % (Auto) 31.9 (10-55) % [place] % (Auto) 10.0 (0-16) % Eos % (Auto) 9.3 H (0-5) % Baso % (Auto) 0.6 (0-3) % Neut # (Auto) 3.36 (1.80-7.00) 10^3/uL Lymph # (Auto) 2.22 (1.00-4.80) 10^3/uL [place] # (Auto) 0.70 (0.00-0.80) 10^3/uL Eos # (Auto) 0.65 H (0.00-0.45) 10^3/uL Baso # (Auto) 0.04 10^3/uL Sodium 137 (136-145) mEq/L Potassium 4.9 (3.5-5.0) mEq/L Chloride 102 (98-106) mEq/L Carbon Dioxide 33 H (21-32) mmol/L BUN 22 H (7-18) mg/dL Creatinine 1.8 H (0.7-1.3) mg/dL Est Cr Clr Drug Dosing 29.42 mL/min Estimated GFR (MDRD) 37 L (>=60) mL/min Glucose 123 H (75-99) mg/dL POC Glucose 157 H (75-105) mg/dl Calcium 8.5 (8.4-10.1) mg/dL C-Reactive Protein 5.7 H (0.2-0.8) mg/dL FRANCISCO Results - Last 24 hrs: Microbiology 08/07/20 18:00 Aerobic Blood Culture - Preliminary Blood - Venous - Lab Draw NO GROWTH AFTER 4 DAYS Anaerobic Blood Culture - Preliminary NO GROWTH AFTER 4 DAYS 08/07/20 18:00 Aerobic Blood Culture - Preliminary Blood - Venous NO GROWTH AFTER 4 DAYS Anaerobic Blood Culture - Preliminary NO GROWTH AFTER 4 DAYS Med Orders - Current: Current Medications Discontinued Medications Acetaminophen (Tylenol) 650 mg PO Q4H PRN PRN Reason: Pain (Mild 1-3)/fever Acetaminophen (Tylenol Solution) 640 mg PO Q4H PRN PRN Reason: Pain (Mild 1-3)/fever Last Admin: 08/11/20 12:50 Dose: 640 mg Documented by: Hydrocodone Bitart/Acetaminophen ([place] 325-5 Mg) 1 tab PO Q4H PRN PRN Reason: Pain (moderate 4-6) Last Admin: 08/09/20 19:09 Dose: 1 tab Documented by: Amiodarone HCl (Cordarone) 200 mg PO DAILY [facility] Last Admin: 08/11/20 07:31 Dose: 200 mg Documented by: Amlodipine Besylate (Norvasc) 10 mg PO DAILY [facility] Last Admin: 08/11/20 07:32 Dose: 10 mg Documented by: Aspirin (Aspirin) 325 mg PO DAILY [facility] Last Admin: 08/11/20 07:30 Dose: 325 mg Documented by: Atorvastatin Calcium (Lipitor) 40 mg PO BEDTIME [facility] Last Admin: 08/10/20 19:33 Dose: 40 mg Documented by: Ceftriaxone Sodium (Rocephin) 1 gm IVPUSH Q24H [facility] Last Admin: 08/07/20 21:17 Dose: Not Given Documented by: Ceftriaxone Sodium (Rocephin) 1 gm IVPUSH Q24H [facility] Last Admin: 08/08/20 19:33 Dose: 1 gm Documented by: Enoxaparin Sodium (Lovenox) 30 mg SUBCUT Q24H [facility] Last Admin: 08/07/20 21:17 Dose: Not Given Documented by: Enoxaparin Sodium (Lovenox) 30 mg SUBCUT Q24H [facility] Last Admin: 08/10/20 19:31 Dose: 30 mg Documented by: Fluconazole (Diflucan) 150 mg PO DAILY [facility] Last Admin: 08/11/20 08:46 Dose: 150 mg Documented by: Flumazenil (Romazicon) 0.2 mg IVPUSH ONETIME ONE Stop: 08/08/20 16:41 Last Admin: 08/08/20 16:52 Dose: 0.2 mg Documented by: Folic Acid (Folic Acid) 1 mg PO DAILY [facility] Last Admin: 08/11/20 07:31 Dose: 1 mg Documented by: Gabapentin (Neurontin) 300 mg PO 0800,1600 [facility] Last Admin: 08/11/20 07:31 Dose: 300 mg Documented by: Gabapentin (Neurontin) 600 mg PO BEDTIME [facility] Last Admin: 08/10/20 19:32 Dose: 600 mg Documented by: Sodium Chloride (Normal Saline) 1,000 mls @ 100 mls/hr IV ASDIRECTED [facility] Stop: 08/08/20 05:29 Last Admin: 08/07/20 20:31 Dose: 100 mls/hr Documented by: Levofloxacin/Dextrose 500 mg/ (Premix) 100 mls @ 100 mls/hr IV ONETIME ONE Stop: 08/09/20 09:59 Last Admin: 08/09/20 10:17 Dose: 100 mls/hr Documented by: Levofloxacin/Dextrose 250 mg/ (Premix) 50 mls @ 50 mls/hr IV Q24H [facility] Last Admin: 08/11/20 07:32 Dose: 50 mls/hr Documented by: Lorazepam (Ativan) 1 mg IVPUSH Q6H PRN PRN Reason: Agitation Last Admin: 08/08/20 10:18 Dose: 1 mg Documented by: Losartan Potassium (Cozaar) 100 mg PO DAILY [facility] Last Admin: 08/11/20 07:31 Dose: 100 mg Documented by: Metformin HCl (Glucophage) 1,000 mg PO BID [facility] Last Admin: 08/11/20 07:30 Dose: 1,000 mg Documented by: Metoprolol Tartrate (Lopressor) 50 mg PO BID [facility] Last Admin: 08/11/20 07:32 Dose: 50 mg Documented by: Mirtazapine (Remeron) 22.5 mg PO BEDTIME [facility] Last Admin: 08/10/20 19:31 Dose: 22.5 mg Documented by: Morphine Sulfate (Morphine) 2 mg IVPUSH Q2H PRN PRN Reason: Pain (severe 7-10) Multivitamins/Minerals/Vitamin C (Tab-A-Simon) 1 tab PO DAILY [facility] Last Admin: 08/11/20 07:31 Dose: 1 tab Documented by: Nystatin (Nystop) 0 gm TOP BID [facility] Last Admin: 08/11/20 07:32 Dose: 1 applic Documented by: Ondansetron HCl (Zofran) 4 mg IV Q6H PRN PRN Reason: Nausea/Vomiting Pantoprazole Sodium (Protonix) 40 mg PO ACBRK [facility] Last Admin: 08/11/20 07:31 Dose: 40 mg Documented by: Quetiapine Fumarate (Seroquel) 12.5 mg PO BID [facility] Last Admin: 08/11/20 07:30 Dose: 12.5 mg Documented by: Temazepam (Restoril) 15 mg PO BEDTIME PRN PRN Reason: Sleep - Exam Quality Assessment: Reports: Urine Catheter General: Reports: Alert, Cooperative, No Acute Distress Lungs: Reports: Normal Respiratory Effort, Decreased Breath Sounds Cardiovascular: Reports: Regular Rate, Regular Rhythm, No Murmurs GI/Abdominal Exam: Normal Bowel Sounds, Soft, Non-Tender, No Distention Extremities: No Pedal Edema Skin: Reports: Warm, Dry, Rash (erythematous rash noted to bilateral axilla and groin area) Neurological: Reports: No New Focal Deficit, Strength Equal Bilateral. Denies: Normal Speech Psy/Mental Status: Reports: Alert, Normal Mood
== END 2020-08-11 13:43 | disposition swing bed (61) | DRG 690 ==
LOC: CC.ED 17:05 → UNDOADMIN 19:04 → CC.MS 19:04
PROVIDERS: ADMIT Nurse Practitioner; ATTEND Family Medicine
DX: N39.0 Urinary tract infection, site not specified (principal); R40.4 Transient alteration of awareness; N28.9 Disorder of kidney and ureter, unspecified; Z51.5 Encounter for palliative care; R41.0 Disorientation, unspecified; R45.1 Restlessness and agitation; I25.10 Atherosclerotic heart disease of native coronary artery without angina pectoris; I10 Essential (primary) hypertension; E78.00 Pure hypercholesterolemia, unspecified; M19.90 Unspecified osteoarthritis, unspecified site; Z96.649 Presence of unspecified artificial hip joint; F32.9 Major depressive disorder, single episode, unspecified; E11.9 Type 2 diabetes mellitus without complications; E53.8 Deficiency of other specified B group vitamins; Z85.46 Personal history of malignant neoplasm of prostate; Z88.8 Allergy status to other drugs, medicaments and biological substances; Z79.84 Long term (current) use of oral hypoglycemic drugs; Z79.82 Long term (current) use of aspirin; Z79.899 Other long term (current) drug therapy; Z86.16 Personal history of COVID-19
CPT/HCPCS: 36415; 70450; 71045; 80048; 80053; 81001; 82550; 82962; 83605; 85025; 86140; 87040; 87077; 87086; 94761; 99285-25; A9270-GY; J0696; J1650; J1956; J2060; J3490; J7030

== ENCOUNTER 2020-08-11 13:59 | Inpatient (IN) | payer MEDICARE, BC ==
[2020-08-11] MEDS ORDERED: LORazepam 2 MG/ML Syringe IVPUSH PRN (14:02)
[2020-08-11] MEDS ORDERED: Temazepam 15 MG Cap PO PRN (14:02)
[2020-08-11] MEDS ORDERED: Ondansetron 4 MG/2 ML SDV IV PRN (14:02)
[2020-08-11] MEDS ORDERED: Acetaminophen/HYDROcodone 325-5 MG Tab PO PRN (14:02)
[2020-08-11] MEDS ORDERED: Morphine 2 MG/ML SYRINGE IVPUSH PRN (14:02)
[2020-08-11] MEDS ORDERED: Acetaminophen 325 MG Tab PO PRN (14:15)
[2020-08-11] MEDS: Gabapentin 300 MG Cap PO SCH ×2 (15:49→19:30)
[2020-08-11] MEDS: metFORMIN 500 MG Tab PO SCH (18:02)
[2020-08-11] MEDS: Enoxaparin 30 MG/0.3 ML Syringe SUBCUT SCH (19:28)
[2020-08-11] MEDS: QUEtiapine 25 MG Tab PO SCH (19:30)
[2020-08-11] MEDS: atorvaSTATin 20 MG Tab PO SCH (19:31)
[2020-08-11] MEDS: Mirtazapine 15 MG Tab PO SCH (19:31)
[2020-08-11] MEDS: Metoprolol Tartrate 50 MG Tab PO SCH (19:31)
[2020-08-11] MEDS: Nystatin Topical Powder 15 GM Bottle TOP SCH (19:33)
[2020-08-12] MEDS: Pantoprazole 40 MG Tab.CR PO SCH (06:24)
[2020-08-12] MEDS: Levofloxacin/Dextrose 5%-Water 250 MG in Premix Bag 1 BAG IV SCH (07:28)
[2020-08-12] MEDS: Aspirin 325 MG Tab PO SCH (07:32)
[2020-08-12] MEDS: Amiodarone 200 MG Tab PO SCH (07:33)
[2020-08-12] MEDS: Losartan 100 MG Tab PO SCH (07:33)
[2020-08-12] MEDS: Folic Acid 1 MG Tab PO SCH (07:34)
[2020-08-12] MEDS: Fluconazole 100 MG Tab PO SCH (07:34)
[2020-08-12] MEDS: Metoprolol Tartrate 50 MG Tab PO SCH ×2 (07:34→19:36)
[2020-08-12] MEDS: amLODIPine 10 MG Tab PO SCH (07:35)
[2020-08-12] MEDS: Gabapentin 300 MG Cap PO SCH ×3 (07:35→19:37)
[2020-08-12] MEDS: Nystatin Topical Powder 15 GM Bottle TOP SCH ×2 (07:35→19:38)
[2020-08-12] MEDS: QUEtiapine 25 MG Tab PO SCH ×2 (07:36→19:39)
[2020-08-12] MEDS: Multivitamin Tab PO SCH (07:37)
[2020-08-12] MEDS: metFORMIN 500 MG Tab PO SCH ×2 (07:39→17:01)
[2020-08-12] MEDS: atorvaSTATin 20 MG Tab PO SCH (19:36)
[2020-08-12] MEDS: Enoxaparin 30 MG/0.3 ML Syringe SUBCUT SCH (19:37)
[2020-08-12] MEDS: Mirtazapine 15 MG Tab PO SCH (19:38)
[2020-08-13] MEDS: Pantoprazole 40 MG Tab.CR PO SCH (06:12)
[2020-08-13] MEDS: Levofloxacin/Dextrose 5%-Water 250 MG in Premix Bag 1 BAG IV SCH (07:27)
[2020-08-13] MEDS: Aspirin 325 MG Tab PO SCH (07:33)
[2020-08-13] MEDS: Amiodarone 200 MG Tab PO SCH (07:33)
[2020-08-13] MEDS: Fluconazole 100 MG Tab PO SCH (07:34)
[2020-08-13] MEDS: Losartan 100 MG Tab PO SCH (07:34)
[2020-08-13] MEDS: Folic Acid 1 MG Tab PO SCH (07:34)
[2020-08-13] MEDS: Gabapentin 300 MG Cap PO SCH ×3 (07:35→19:28)
[2020-08-13] MEDS: amLODIPine 10 MG Tab PO SCH (07:35)
[2020-08-13] MEDS: Metoprolol Tartrate 50 MG Tab PO SCH ×2 (07:35→19:29)
[2020-08-13] MEDS: Nystatin Topical Powder 15 GM Bottle TOP SCH ×2 (07:36→19:28)
[2020-08-13] MEDS: QUEtiapine 25 MG Tab PO SCH ×2 (07:36→19:28)
[2020-08-13] MEDS: Multivitamin Tab PO SCH (07:37)
[2020-08-13] MEDS: metFORMIN 500 MG Tab PO SCH ×2 (07:38→17:03)
[2020-08-13] MEDS: atorvaSTATin 20 MG Tab PO SCH (19:28)
[2020-08-13] MEDS: Enoxaparin 30 MG/0.3 ML Syringe SUBCUT SCH (19:29)
[2020-08-13] MEDS: Mirtazapine 15 MG Tab PO SCH (19:29)
[2020-08-14] MEDS: Pantoprazole 40 MG Tab.CR PO SCH (06:36)
[2020-08-14] MEDS: Levofloxacin/Dextrose 5%-Water 250 MG in Premix Bag 1 BAG IV SCH (07:35)
[2020-08-14] MEDS: Aspirin 325 MG Tab PO SCH (07:39)
[2020-08-14] MEDS: Amiodarone 200 MG Tab PO SCH (07:40)
[2020-08-14] MEDS: Fluconazole 100 MG Tab PO SCH (07:40)
[2020-08-14] MEDS: Losartan 100 MG Tab PO SCH (07:40)
[2020-08-14] MEDS: Folic Acid 1 MG Tab PO SCH (07:41)
[2020-08-14] MEDS: metFORMIN 500 MG Tab PO SCH ×2 (07:41→17:05)
[2020-08-14] MEDS: Metoprolol Tartrate 50 MG Tab PO SCH ×2 (07:41→19:46)
[2020-08-14] MEDS: Nystatin Topical Powder 15 GM Bottle TOP SCH ×2 (07:42→19:47)
[2020-08-14] MEDS: Gabapentin 300 MG Cap PO SCH ×3 (07:42→19:46)
[2020-08-14] MEDS: amLODIPine 10 MG Tab PO SCH (07:42)
[2020-08-14] MEDS: Multivitamin Tab PO SCH (07:43)
[2020-08-14] MEDS: QUEtiapine 25 MG Tab PO SCH ×2 (07:43→19:47)
[2020-08-14] MEDS: Enoxaparin 30 MG/0.3 ML Syringe SUBCUT SCH (19:45)
[2020-08-14] MEDS: Mirtazapine 15 MG Tab PO SCH (19:46)
[2020-08-14] MEDS: atorvaSTATin 20 MG Tab PO SCH (19:46)
[2020-08-15] MEDS: Pantoprazole 40 MG Tab.CR PO SCH (06:33)
[2020-08-15] MEDS: Fluconazole 100 MG Tab PO SCH (07:51)
[2020-08-15] MEDS: Folic Acid 1 MG Tab PO SCH (07:51)
[2020-08-15] MEDS: Aspirin 325 MG Tab PO SCH (07:51)
[2020-08-15] MEDS: metFORMIN 500 MG Tab PO SCH (07:51)
[2020-08-15] MEDS: Multivitamin Tab PO SCH (07:52)
[2020-08-15] MEDS: QUEtiapine 25 MG Tab PO SCH (07:52)
[2020-08-15] MEDS: Losartan 100 MG Tab PO SCH (07:52)
[2020-08-15] MEDS: Amiodarone 200 MG Tab PO SCH (07:52)
[2020-08-15] MEDS: Metoprolol Tartrate 50 MG Tab PO SCH (07:53)
[2020-08-15] MEDS: Nystatin Topical Powder 15 GM Bottle TOP SCH (07:53)
[2020-08-15] MEDS: Gabapentin 300 MG Cap PO SCH (07:53)
[2020-08-15] MEDS: amLODIPine 10 MG Tab PO SCH (07:53)
[2020-08-15 07:55] VITALS: PULSE 71
[2020-08-15 08:14] VITALS: BP 117/58
--- NOTE | 2020-08-16 07:48 | PCM.DCSUM1 ---
Discharge Summary - Hospital Course HPI Initial Comments: Fortino is a 80 year old male that presented to the ER via private vehicle by his daughter. Daughter admits he became combative today and upon arrival initially refused getting out of [place]. It was noted patient to have altered mental status. Initially patient was alert on arrival but not orientated as he didn't know the year or where he was. The daughter had reported the patient was in [place] staying with her prior to coming back to [place] today. Daughter had appointment with Dr. Camp initially today for admission to [facility]. Fortino ended up getting COVID on Ayana robbin and was admitted to the hospital and discharged the 21 of July. Daughter had stated while the patient was admitted in the hospital he became confused and came down with dementia which the hospital had told her. The past couple of days the Fortino has become more f orgetful, agitated, and has been swinging at her to punch her. Per ER provider he had admitted after his daughter left the room that he was very mad at her because she is taking his house away from him. He became more alert and orientated to place at that time. - Discharge Data Discharge Date: 08/15/20 Discharge Disposition: DC/Tfer to SNF 03 Condition: Good - Referral to Home Health Primary Care Physician: Michele Camp MD - Discharge Diagnosis/Problem(s) (1) Altered mental status SNOMED Code(s): 802371475 ICD Code: R41.82 - ALTERED MENTAL STATUS, UNSPECIFIED Status: Acute Qualifiers: Altered mental status type: transient alteration of awareness Qualified Code(s): R40.4 - Transient alteration of awareness (2) UTI, Urinary tract infectious disease SNOMED Code(s): 26592782 ICD Code: N39.0 - URINARY TRACT INFECTION, SITE NOT SPECIFIED Status: Resolved (3) Cerebrovascular accident (CVA) SNOMED Code(s): 531123496 ICD Code: I63.9 - CEREBRAL INFARCTION, UNSPECIFIED Status: Acute Qualifiers: CVA mechanism: stenosis Precerebral and cerebral artery: other cerebral artery Qualified Code(s): I63.59 - Cerebral infarction due to unspecified occlusion or stenosis of other cerebral artery - Patient Summary/Data Consults: Consultations 08/11/20 14:02 PT Evaluation and Treatment [CONS] Routine - Patient Instructions Diet: Usual Diet as Tolerated Activity: As Tolerated Activity, Other: up with assist only - Discharge Plan Prescriptions/Med Rec: Gabapentin [Neurontin] 600 mg PO BEDTIME #60 cap Nystatin [Nystop] 1 gm TOP BID #1 bottle QUEtiapine [SEROquel] 12.5 mg PO BID #60 tablet Acetaminophen [Tylenol] 650 mg PO Q4H PRN #60 tablet PRN Reason: Pain (Mild 1-3)/fever Home Medications: Home Meds Gabapentin 300 mg PO ASDIRECTED 11/22/13 [History] amLODIPine Besylate [Amlodipine Besylate] 10 mg PO DAILY 11/22/13 [History] Losartan Potassium [Cozaar] 100 mg PO DAILY 11/24/15 [History] Aspirin 325 mg PO DAILY 01/24/16 [History] Folic Acid 1 mg PO DAILY 01/24/16 [History] Metoprolol Tartrate [Lopressor] 50 mg PO BID 01/24/16 [History] Mirtazapine 1.5 tab PO BEDTIME 01/24/16 [History] Multivitamin [Daily Multiple Vitamin] 1 tab PO DAILY 01/24/16 [History] Omeprazole 20 mg PO DAILY 01/24/16 [History] atorvaSTATin [Lipitor] 40 mg PO BEDTIME 01/24/16 [History] Amiodarone [Cordarone] 200 mg PO DAILY #30 tablet 01/27/16 [Rx] metFORMIN HCl [Metformin HCl] 1,000 mg PO BID 12/26/19 [History] Acetaminophen [Tylenol] 650 mg PO Q4H PRN #60 tablet 08/15/20 [Rx] Gabapentin [Neurontin] 600 mg PO BEDTIME #60 cap 08/15/20 [Rx] Nystatin [Nystop] 1 gm TOP BID #1 bottle 08/15/20 [Rx] QUEtiapine [SEROquel] 12.5 mg PO BID #60 tablet 08/15/20 [Rx] - Discharge Summary/Plan Comment DC Time >30 min.: Yes Discharge Summary/Plan Comment: Fortino will be transferred to [facility] this morning. Patient is doing remarkably better since initial admit. Patient doesn't appear to have any further confusion, agitation. Patients speech is much improved and not garbled as prior. Concerns of CVA with age indeterminate lacunar infarcts noted on CT from prior vs UTI. Patient continues to be weak and will need assist with ambulation. Dr. Camp will follow in [facility]. PT to follow for strengthening. - General Info Functional Status: Reports: Pain Controlled, Tolerating Diet, Urinating. Denies: New Symptoms - Review of Systems General: Reports: No Symptoms HEENT: Reports: No Symptoms Pulmonary: Reports: No Symptoms Cardiovascular: Reports: No Symptoms Gastrointestinal: Reports: No Symptoms Genitourinary: Reports: No Symptoms Musculoskeletal: Reports: No Symptoms Skin: Reports: No Symptoms Neurological: Reports: No Symptoms Psychiatric: Reports: No Symptoms - Patient Data Vitals - Most Recent: Last Vital Signs Temp 98.1 F 08/15/20 08:00 Pulse 71 08/15/20 08:00 Resp 20 08/15/20 08:00 BP 117/58 L 08/15/20 08:00 Pulse Ox 96 08/15/20 08:00 Weight - Most Recent: 246 lb Lab Results - Last 24 hrs: Laboratory Results - last 24 hr 08/15/20 Range/Units 07:56 POC Glucose 102 (75-105) mg/dl Med Orders - Current: Current Medications Discontinued Medications Acetaminophen (Tylenol) 650 mg PO Q4H PRN PRN Reason: Pain (Mild 1-3)/fever Last Admin: 08/14/20 23:34 Dose: 650 mg Documented by: Hydrocodone Bitart/Acetaminophen ([place] 325-5 Mg) 1 tab PO Q4H PRN PRN Reason: Pain (moderate 4-6) Amiodarone HCl (Cordarone) 200 mg PO DAILY [facility] Last Admin: 08/15/20 07:52 Dose: 200 mg Documented by: Amlodipine Besylate (Norvasc) 10 mg PO DAILY [facility] Last Admin: 08/15/20 07:53 Dose: 10 mg Documented by: Aspirin (Aspirin) 325 mg PO DAILY [facility] Last Admin: 08/15/20 07:51 Dose: 325 mg Documented by: Atorvastatin Calcium (Lipitor) 40 mg PO BEDTIME [facility] Last Admin: 08/14/20 19:46 Dose: 40 mg Documented by: Enoxaparin Sodium (Lovenox) 30 mg SUBCUT Q24H [facility] Last Admin: 08/14/20 19:45 Dose: 30 mg Documented by: Fluconazole (Diflucan) 150 mg PO DAILY [facility] Last Admin: 08/15/20 07:51 Dose: 150 mg Documented by: Folic Acid (Folic Acid) 1 mg PO DAILY [facility] Last Admin: 08/15/20 07:51 Dose: 1 mg Documented by: Gabapentin (Neurontin) 600 mg PO BEDTIME [facility] Last Admin: 08/14/20 19:46 Dose: 600 mg Documented by: Gabapentin (Neurontin) 300 mg PO 0800,1600 [facility] Last Admin: 08/15/20 07:53 Dose: 300 mg Documented by: Levofloxacin/Dextrose 250 mg/ (Premix) 50 mls @ 50 mls/hr IV Q24H [facility] Stop: 08/14/20 12:00 Last Admin: 08/14/20 07:35 Dose: 50 mls/hr Documented by: Lorazepam (Ativan) 1 mg IVPUSH Q6H PRN PRN Reason: Agitation Losartan Potassium (Cozaar) 100 mg PO DAILY [facility] Last Admin: 08/15/20 07:52 Dose: 100 mg Documented by: Metformin HCl (Glucophage) 1,000 mg PO BIDMEALS [facility] Last Admin: 08/15/20 07:51 Dose: 1,000 mg Documented by: Metoprolol Tartrate (Lopressor) 50 mg PO BID [facility] Last Admin: 08/15/20 07:53 Dose: 50 mg Documented by: Mirtazapine (Remeron) 22.5 mg PO BEDTIME [facility] Last Admin: 08/14/20 19:46 Dose: 22.5 mg Documented by: Morphine Sulfate (Morphine) 2 mg IVPUSH Q2H PRN PRN Reason: Pain (severe 7-10) Multivitamins/Minerals/Vitamin C (Tab-A-Simon) 1 tab PO DAILY [facility] Last Admin: 08/15/20 07:52 Dose: 1 tab Documented by: Nystatin (Nystop) 0 gm TOP BID [facility] Last Admin: 08/15/20 07:53 Dose: 1 applic Documented by: Ondansetron HCl (Zofran) 4 mg IV Q6H PRN PRN Reason: Nausea/Vomiting Pantoprazole Sodium (Protonix) 40 mg PO ACBRK [facility] Last Admin: 08/15/20 06:33 Dose: 40 mg Documented by: Quetiapine Fumarate (Seroquel) 12.5 mg PO BID [facility] Last Admin: 08/15/20 07:52 Dose: 12.5 mg Documented by: Temazepam (Restoril) 15 mg PO BEDTIME PRN PRN Reason: Sleep - Exam General: Reports: Alert, Oriented, Cooperative, No Acute Distress Lungs: Reports: Clear to Auscultation, Normal Respiratory Effort Cardiovascular: Reports: Regular Rate, Regular Rhythm GI/Abdominal Exam: Normal Bowel Sounds, Soft, Non-Tender, No Distention Extremities: Normal Inspection, No Pedal Edema Skin: Reports: Warm, Dry, Intact Psy/Mental Status: Reports: Alert, Normal Affect, Normal Mood
== END 2020-08-15 10:00 | DRG 690 ==
LOC: CC.MS 13:59 → UNDOADMIN 13:59 → CC.MS 14:02
PROVIDERS: ADMIT Physician Assistant Medical; ATTEND Family Medicine
DX: N39.0 Urinary tract infection, site not specified (principal); Z79.899 Other long term (current) drug therapy; Z79.82 Long term (current) use of aspirin; Z79.84 Long term (current) use of oral hypoglycemic drugs; I69.90 Unspecified sequelae of unspecified cerebrovascular disease; Z51.5 Encounter for palliative care; I69.928 Other speech and language deficits following unspecified cerebrovascular disease
CPT/HCPCS: 82962; 97110-GP; 97161-GP; A9270-GY; J1650; J1956